=== PATIENT | male | born 1965 | race Caucasian/White ===

== ENCOUNTER 2025-02-18 12:45 | Outpatient (OUT) | payer OTHER, SELFPAY ==
--- OUTSIDE RECORDS SUMMARY | 2025-02-16 04:00 | XMS_ITS ---
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 Role Phone DO Sona Adame Primary Care Provider Brent George Unavailable [phone] Allergies No Known Allergies REASON FOR VISIT EMPHYSEMA Medications Medication SIG (Take, Route, Frequency, Duration) Notes Start Date End Date Status Breztri Aerosphere 160-9-4.8 MCG/ACT 2 puffs Inhalation Twice a day for 30 days Rinse after use 02/16/2025 Active metFORMIN HCl ER 500 MG TAKE 4 TABLETS B Y MOUTH ONCE DAILY Oral for 90 Days Active Losartan Potassium 50 MG TAKE 1 TABLET B Y MOUTH ONCE DAILY Oral for 90 Days Active Rosuvastatin Calcium 20 MG TAKE 1 TABLET BY MOUTH ONCE DAILY Oral for 90 Days Active Omeprazole 40 MG TAKE 1 CAPSULE BY MOUTH ONCE DAILY Oral for 30 Days Active Albuterol Sulfate HFA 108 (9 0 Base) MCG/ACT INHALE 1 TO 2 PUFFS BY MOUTH EVERY 4 TO 6 HOURS NEEDED Inhalation Active hydroCHLOROthiazide 25 MG TAKE 1 TABLET BY MOUTH ONCE DAILY Oral for 90 Days Active Aspirin 81 MG 1 tablet Orally Once a day for 30 day(s) 02/16/2025 Active Social History Tobacco Use: Social History Observation Description Date Details (start date - stop date) Never Smoker NA - NA Tobacco Control (Standard) Question Answer Notes Tobacco use: Nonsmoker Problems Problem Type SNOMED Code ICD Code Onset Dates Problem Status W/U Status Risk Notes Problem Paraseptal emphysema (41506736) Paraseptal emphysema (J43.8) Active confirmed Problem Coronary artery disease (38355892) CAD (coronary artery disease) (I25.10) Active confirmed Problem Diabetes mellitus type 2 (disorder) (23567396) DM2 (diabetes mellitus, type 2) (E11.9) Active confirmed Problem Allergic rhinitis (01511074) Allergic rhinitis (J30.9) Active confirmed Problem Exposure to second hand tobacco smoke (event) (9256408636217553 3) Secondhand smoke exposure (Z77.22) Active confirmed Problem 158580850 intermediate (current) use of inhaled steroids (Z79.51) Active confirmed Problem Uncomplicated moderate persistent asthma (514797452) Moderate persistent asthma, uncomplicated (J45.40) Active confirmed Vital Signs Temperature 96.9 degrees Fahrenheit 02/17/20 25 Blood pressure systolic 135 mm Hg 02/17/20 25 Blood pressure diastolic 81 mm Hg 025 Heart Rate 70 /min 02/16/2025 Respiratory Rate 16 /min 02/16/2025 Height 75.0 in 02/16/2025 Weight 219.8 lbs 02/16/2025 BMI 27.47 kg/m2 02/16/2025 Oximetry 96 % 02/16/2025 Procedures Procedure Date Ordered Date Performed Result Body Sit e PFT (30813, 34419, 00879) 02/16/2025 N/A Encounters Encounter Location Date Provider Diagnosis Pulmonary Medicine [address] [address] 02/16/2025 Brent Pollack Paraseptal emphysema J43.8 ; Moderate persistent asthma, uncomplicated J45.40 ; Allergic rhinitis J30.9 ; CAD (coronary artery disease) I25.10 ; DM2 (diabetes mellitus, type 2) E11.9 ; Secondhand smoke exposure Z77.22 and intermediate (current) use of inhaled steroids Z79.51 Assessments Encounter Date Diagnosis (ICD Code) Assessment Notes Treatment Notes Treatment Clinical Notes Section Notes 02/16/2025 Paraseptal emphysema (ICD-10 - J43.8) Asthma-COPD overlap Lifelong nonsmoker, but has exposure to secondhand smoke in youth, and 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 With his family history of COPD and the Bilateral lower lobe paraseptal emphysematous changes noted on CT chest 12/12/2024, alpha-1 antitrypsin (AAT) deficiency needs R/O. Screening swab performed in the office. Pamphlet discussing AAT causes, testing, and potential treatment was provided to the patient. Appropriate follow-up is dependent on identified genotype. 02/16/2025 Moderate persistent asthma, uncomplicated (ICD-10 - J45.40) Diagnosed ~5 years ago, symptoms worsened ~3 years ago with COVID, now a significant decline in control over the past 4 months. PFT 01/26/2022 noted only very mild obstruction. Emphysematous changes noted on CT chest, but lifelong non-smoker. Currently, on Asmanex 200 and using albuterol 8-9 times a day. Breath sounds are clear today. Question asthma-COPD overlap +/- other contributing factor such as cardiac or neuromuscular - he has known CAD. He is fatigued, but does not profess classic symptoms such as myasthenia gravis. As it has been 3+ years since last PFT was done, recommended repeating it for comparison in order to help identify the main cause for uncontrolled symptoms. He voiced agreement. There is question about LABA intolerance, but I suspect this was more d/t the dry powder inhaler formulation opposed to the actual LABA (e.g. Advair). Patient voiced he would be willing to try a LABA, seeing how bad he is feeling. After PFT is done, he can start Breztri 2 puffs BID - samples provided. Counseled him on adverse effects, including LAMA - he already has dry mouth and blurry vision; counseled on urinary retention. He is to stop Asmanex when he starts Breztri. Avoid albuterol within 2 hours of Breztri to avoid a pharmacodynamic interaction. There is no eosinophils on most recent testing 2 months ago. He is going to see Dr. Reyes for allergy testing on 03/04/2025, so I am going to defer any further lab testing to Dr. Reyes (e.g. IgE). Counseled patient if Dr. Ryees recommends allergy immunotherapy, I would go with it. F/U 4 weeks to review PFT and response to Breztri. 02/16/2025 Allergic rhinitis (ICD-10 - J30.9) Patient has new patient appointment with Dr. Reyes on 03/04/2025. Patient was encouraged to keep that appointment. 02/16/2025 CAD (coronary artery disease) (ICD-10 - I25.10) Diffuse mild-moderate CAD noted on [facility] 01/01/2022. If PFT does not show any significant worsening, and he does not respond to Breztri, then we have to consider the possibility that dyspnea is related to underlying CAD. 02/16/2025 DM2 (diabetes mellitus, type 2) (ICD-10 - E11.9) Steroids prescribed for this patient's underlying pulmonary disease can adversely affect blood glucose levels, inducing hyperglycemia and worsening underlying diabetes. The patient is encouraged to follow up with the primary care provider to create a plan to manage diabetes in this situation. 02/16/2025 Secondhand smoke exposure (ICD-10 - Z77.22) 02/16/2025 intermediate (current) use of inhaled steroids (ICD-10 - Z79.51) Patient was counseled to rinse & gargle with water after inhaled corticosteroid use. 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 With his family history of COPD and the Bilateral lower lobe paraseptal emphysematous changes noted on CT chest 12/12/2024, alpha-1 antitrypsin (AAT) deficiency needs R/O. Screening swab performed in the office. Pamphlet discussing AAT causes, testing, and potential treatment was provided to the patient. Appropriate follow-up is dependent on identified genotype. Moderate persistent asthma, uncomplicate d Diagnosed ~5 years ago, symptoms worsened ~3 years ago with COVID, now a significant decline in control over the past 4 months. PFT 01/26/2022 noted only very mild obstruction. Emphysematous changes noted on CT chest, but lifelong non-smoker. Currently, on Asmanex 200 and using albuterol 8-9 times a day. Breath sounds are clear today. Question asthma-COPD overlap +/- other contributing factor such as cardiac or neuromuscular - he has known CAD. He is fatigued, but does not profess classic symptoms such as myasthenia gravis. As it has been 3+ years since last PFT was done, recommended repeating it for comparison in order to help identify the main cause for uncontrolled symptoms. He voiced agreement. There is question about LABA intolerance, but I suspect this was more d/t the dry powder inhaler formulation opposed to the actual LABA (e.g. Advair). Patient voiced he would be willing to try a LABA, seeing how bad he is feeling. After PFT is done, he can start Breztri 2 puffs BID - samples provided. Counseled him on adverse effects, including LAMA - he already has dry mouth and blurry vision; counseled on urinary retention. He is to stop Asmanex when he starts Breztri. Avoid albuterol within 2 hours of Breztri to avoid a pharmacodynamic interaction. There is no eosinophils on most recent testing 2 months ago. He is going to see Dr. Reyes for allergy testing on 03/04/2025, so I am going to defer any further lab testing to Dr. Reyes (e.g. IgE). Counseled patient if Dr. Reyes recommends allergy immunotherapy, I would go with it. F/U 4 weeks to review PFT and response to Breztri. Allergic rhinitis Patient has new patient appointment with Dr. Reyes on 03/04/2025. Patient was encouraged to keep that appointment. CAD (coronary artery disease) Diffuse mild-moderate CAD noted on [facility] 01/01/2022. If PFT does not show any significant worsening, and he does not respond to Breztri, then we have to consider the possibility that dyspnea is related to underlying CAD. DM2 (diabetes mellitus, type 2) Steroids prescribed for this patient's underlying pulmonary disease can adversely affect blood glucose levels, inducing hyperglycemia and worsening underlying diabetes. The patient is encouraged to follow up with the primary care provider to create a plan to manage diabetes in this situation. intermediate (current) use of i nhaled steroids Patient was counseled to rinse & gargle with water after inhaled corticosteroid use. Pending Test Test Name Order Date [id number]-3-[id number] SCREENING SWAB 02/16 PFT (18937, 20154, 98916) 02/16/2025 Next Appt Details Follow Up: 4 Weeks, Reason: Asthma/COPD Provider Name:Brent Pollack, 03/18/2025 07:30:00 AM, [address] [place], [id number], Procedure Notes * Category Sub-Category Detail Notes [place]: [place] [facility] [place] 70%-FEV1: 110%-FVC: 120%-EXP40-09%: 94%-Bronchodilator response: None-RV: 99%-T%-DLCO: 113% Progress Notes * LAURA Gerson EDOB:1964 (59 yo M)Acc No.[id number]:02/16/2025 New Patient Patient: Gerson WARE Provider: Elan Pollack DO :1965 A ge:59 Y S ex:Male Date:02/16/2025 Address:[address] [place], [place] [id number] Pcp:DO Sona Adame Check In:07:46 AM ESTDenisseck O ut:08:43 AM EST Subjective: * Chief Complaints: * E MPHYSEMA * HPI: G eneral: NEW PATIENT 59yo male presents with history of asthma/COPD overlap. Patient states he was diagnosed with asthma ~2019. Contracted COVID-19 ~2021 and saw [facility] once (Raiaz Castro NP). He was doing okay until about the past year when he noticed slowly worsening respiratory symptoms. Over the past ~4 months, these symptoms have worsened significantly. Main complaint is dyspnea. It is worsening with activity, but can also occur simply at rest. Triggers also include temperature extremes and allergens (e.g. pollen). He also complains of a daily productive cough - it is worst in the AM, can be clear/white and thick without hemoptysis. He has an appointment scheduled 03/04/[address] Reyes for allergy evaluation. He is using albuterol up to 8-9 times a day; symptoms are worst at work. For a maintenance inhaler, he currently uses Asmanex 200. Previously on Flovent 220 which worked well, but was changed d/t formulary issues. There is a record that LABA worsened symptoms. He was on Advair Diskus - he doesnotdo well with dry powder inhalers, so he may actually not have an intolerance to LABA. He is a lifelong nonsmoker. There is family history of COPD and lung cancer. 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 He wore respirator gear while painting, but does not seem to use any PPE at the foundry. He has a dog, no birds. Reviewed data. -CT chest 12/12/2024 noted emphysema and calcified mediastinal/hilar lymph nodes. I personally reviewed the imaging. The emphysema is mild and primarily paraseptal in the bases. -PFT 01/26/2022: Very mild obstruction (FEV1/FVC 70%, FEV1 110%), without a bronchodilator response, and normal lung volumes and DLCO. -LHC 01/01/2022: Diffuse mild CAD -Echo 01/01/2022: EF 55-60%, mild diastolic dysfunction (grade 1), no RVSP mentioned -Labs 12/12/2024: Eosinophils 1.4% / 100 He follows with [facility] for cardiac issues. Last visit note 10/20/2024 was reviewed. MA Intake Comments:. Patient is referred from for Emphysema. Patient complains of Cough, SOB, Chest Tightness & bilateral rib pain for the last several months. Patient reports being seen by [facility] Pulmonary several years ago. Patient is a non-smoker. Patient currently works in a [employer]. Patient is currently using Asmanex with benefit. Patient is currently using his rescue inhaler 8-9 times per day. Patient reports trying a powder inhaler and was unable to tolerate the medication. Patient reports using Flovent in the past with benefit, but insurance would not cover the medication. Patient was on the medication for 4 years and did not have to use his rescue inhaler while on the medication. Patient is under the care of [facility]. * ROS: G eneral/Constitutional: Fever or sweats d enies. C hange of appetite d enies. C hills d enies. W eight Change d enies. H EENT: Blurry Vision a dmits. D ry mouth a dmits. S ore throat d enies. O ral Ulcers d enies. P ost Nasal Drip D enies.?Congestion A dmits. H oarseness D enies. C ardiovascular: Tachycardia d enies. E harpreet D enies. C hest pain d enies. P alpitations d enies. R espiratory: Pleurisy D enies. D yspnea a dmits. C ough d aily productive, clear/white thick sputum. H emoptysis d enies. W heezing d enies. G astrointestinal: Acid Reflux/GERD/Heartburn d enies. D ysphagia d enies. M usculoskeletal: Arthralgias/joint pain D enies. S kin: Easy bruising d enies. R irina d enies. ? N eurologic: Seizures d enies. T remor d enies. H ematology: Abnormal Bleeding d enies. P sychiatric: Anxiety d enies. * Active Problem List I25.10 CAD (coronary artery disease) Modified On:02/16/2025U Status:confirmed J30.9 Allergic rhinitis Modified On:02/16/2025 Status:confirmed E11.9 DM2 (diabetes [facility], type 2) Modified On:02/16/2025U Status:confirmed J43.8 Paraseptal emphysema Modified On:02/16/2025U Status:confirmed Z77.22 Secondhand smoke exp osure Modified On:02/16/2025U Status:confirmed J45.40 Moderate persistent asthma, uncomplicated Modified On:02/16/2025U Status:confirmed Z79.51 intermediate (current) use of inhaled steroids Modified On:02/16/2025 Status:confirmed * Medical History: * Surgical History: C ardiac Catheterization 01/02/2022 * Hospitalization/Major Diagno stic Procedure: D enies Past Hospitalization * Family History: F ather: stomach cancer. M other: Lung cancer, leukemia, diagnosed with Colon cancer. M aternal aunt: emphysema. S ister(s): diagnosed with Diabetes mellitus without mention of complication, type II or unspecified type, not stated as uncontrolled, Unspecified heart disease. 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 D rugs/Alcohol: D rugs H ave you used drugs other than those for medical reasons in the past 12 months? N o D oes the Patient have a History of Drug Abuse in the Past? N o Caffeine I ntake: n one Do you drink alcohol?: No. Do you smoke marijuana?: Denies. * Medications: T akingAlbuterol Sulfate HFA 108 (90 Base) MCG/ACT Aerosol Solution INHALE 1 TO 2 PUFFS BY MOUTH EVERY 4 TO 6 HOURS NEEDED Inhalation Asmanex HFA(Mometasone Furoate) 200 MCG/ACT Aerosol INHALE 2 PUFFS TWICE DAILY;RINSE MOUTH THOROUGHLY WITH WATER AFTER USE Inhalation Aspirin 81 MG Tablet Delayed Release 1 tablet Orally Once a day hydroCHLOROthiazide 25 MG Tablet TAKE 1 TABLET BY MOUTH ONCE DAILY Oral Losartan Potassium 50 MG Tablet TAKE 1 TABLET BY MOUTH ONCE DAILY Oral metFORMIN HCl ER 500 MG Tablet Extended Release 24 Hour TAKE 4 TABLETS BY MOUTH ONCE DAILY Oral Omeprazole 40 MG Capsule Delayed Release TAKE 1 CAPSULE BY MOUTH ONCE DAILY Oral Rosuvastatin Calcium 20 MG Tablet TAKE 1 TABLET BY MOUTH ONCE DAILY Oral Medication List reviewed and reconciled with the patientTaking Albuterol Sulfate HFA 108 (90 Base) MCG/ACT Aerosol Solution INHALE 1 TO 2 PUFFS BY MOUTH EVERY 4 TO 6 HOURS NEEDED Inhalation Taking Asmanex HFA(Mometasone Furoate) 200 MCG/ACT Aerosol INHALE 2 PUFFS TWICE DAILY;RINSE MOUTH THOROUGHLY WITH WATER AFTER USE Inhalation Taking Aspirin 81 MG Tablet Delayed Release 1 tablet Orally Once a day Taking hydroCHLOROthiazide 25 MG Tablet TAKE 1 TABLET BY MOUTH ONCE DAILY Oral Taking Losartan Potassium 50 MG Tablet TAKE 1 TABLET BY MOUTH ONCE DAILY Oral Taking metFORMIN HCl ER 500 MG Tablet Extended Release 24 Hour TAKE 4 TABLETS BY MOUTH ONCE DAILY Oral Taking Omeprazole 40 MG Capsule Delayed Release TAKE 1 CAPSULE BY MOUTH ONCE DAILY Oral Taking Rosuvastatin Calcium 20 MG Tablet TAKE 1 TABLET BY MOUTH ONCE DAILY Oral Medication List reviewed and reconciled with the patient * Allergies: N .K.D.A.no[Allergies Verified] Objective: * Vitals: W t:219.8lbs, Ht:75.0in, BP:sittin/81mm Hg, Temp:Forehead:96.9F, HR:70/min, RR:16/min, BMI:27.47Index, Oxygen sat %:Room Air:96%, Ht-cm: 190.5 cm, Wt-k.7 kg. * Examination: E xam: GENERAL APPEARANCE: A ppears stated age. Skin N ormal. Mouth P ink and moist. Oropharynx M allampati Class II. Trachea M idline. Chest N ormal. Respiratory Normal M ovements, E ffort N ormal. Auscultation B reath sounds are diminished but clear to auscultation without wheezes, crackles, or rhonchi. Cardiac R egular rate and rhythm. Gastrointestinal N ormal. Vascular N o edema. Musculoskeletal N ormal posture. Neurological F ocal, intact. Psychiatric A lert and oriented x3. Mentation/Cognition N ormal. Assessment: * Assessment: 1. M oderate persistent asthma, uncomplicated - J45.40 (Primary) 2 . P araseptal emphysema - J43.8 3 . A llergic rhinitis - J30.9 4 . C AD (coronary artery disease) - I25.10 5 . D M2 (diabetes mellitus, type 2) - E11.9 6 . S econdhand smoke exposure - Z77.22 7 . L taylor term (current) use of inhaled steroids - Z79.51 Plan: * Treatment: 2. 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 With his family history of COPD and the Bilateral lower lobe paraseptal emphysematous changes noted on CT chest 12/12/2024, alpha-1 antitrypsin (AAT) deficiency needs R/O. Screening swab performed in the office. Pamphlet discussing AAT causes, testing, and potential treatment was provided to the patient. Appropriate follow-up is dependent on identified genotype. 3. A llergic rhinitis Notes: Patient has new patient appointment with Dr. Reyes on 03/04/2025. Patient was encouraged to keep that appointment. 4. C AD (coronary artery disease) Notes: Diffuse mild-moderate CAD noted on [facility] 01/01/2022. If PFT does not show any significant worsening, and he does not respond to Breztri, then we have to consider the possibility that dyspnea is related to underlying CAD. 5. D M2 (diabetes mellitus, type 2) Notes: Steroids prescribed for this patient's underlying pulmonary disease can adversely affect blood glucose levels, inducing hyperglycemia and worsening underlying diabetes. The patient is encouraged to follow up with the primary care provider to create a plan to manage diabetes in this situation. ? 6. L taylor term (current) use of inhaled steroids Notes: Patient was counseled to rinse & gargle with water after inhaled corticosteroid use. * Procedures: P FT: Data: [place] [facility] [place]FEV[place]FVC: 70% -FEV1: 110% -FVC: 120% -FKN30-24%: 94% -Bronchodilator response: None -RV: 99% -T% -DLCO: 113%. * Procedure Codes: * Preventive Medicine: COVID Vaccination: H as patient had COVID Vaccination? COVID Vaccination N o Patient Refused Immunization Status: P neumovacc P rotven84-98/10/2024. I nfluenza 1 . Z ostivax 0 05/03/2024. B oostrix 0 02/29/2024. Screenings/Counseling: F ALL RISK SCREENING Fall Risk Assessment: N o falls in the past year Are you afraid of falling? N o T OBACCO ACTION PLAN Exclusion: M edical Reason Non Smoker Type of Medical Reason: N ot indicated B NJ ACTION PLAN Above Normal BMI Follow-up D ietary management education, guidance, and counseling R SV-11/10/2023. * Follow Up: 4 Weeks (Reason: Asthma/COPD) * * Sign off status: Completed Visit Status: C HK (Check Out) true * Provider: Elan Pollack DO Date: 0 02/16/2025 Generated for Dean anders/Ratna/eTransmitting on: 0 02/18/2025 12:53 PM EDT History and Physical Notes * HPI (History of Present Illness) Category Sub-Category Detail Notes Category Not es General Patient is refe rred from for Emphysema. Patient complains of Cough, SOB, Chest Tightness & bilateral rib pain for the last several months. Patient reports being seen by [facility] Pulmonary several years ago. Patient is a non-smoker. Patient currently works in a [employer]. Patient is currently using Asmanex with benefit. Patient is currently using his rescue inhaler 8-9 times per day. Patient reports trying a powder inhaler and was unable to tolerate the medication. Patient reports using Flovent in the past with benefit, but insurance would not cover the medication. Patient was on the medication for 4 years and did not have to use his rescue inhaler while on the medication. Patient is under the care of [facility]. Examination Category Sub-Category Detail Notes Category Not es Exam GENERAL APPEARANCE: Appears stated age Skin Normal Mouth [place] and moist Trachea Midline Chest Normal Respiratory Normal Movements, Ef fort Normal Auscultation Breath sounds are di minished but clear to auscultation without wheezes, crackles, or rhonchi Cardiac Regular rate and rhy thm Gastrointestinal Normal Vascular No edema Musculoskeletal Normal posture Neurological Focal, intact Psychiatric Alert and oriented x 3 Mentation/Cognition Normal Oropharynx Mallampati Class II
--- OUTSIDE RECORDS SUMMARY | 2025-02-18 12:53 | XMS_ITS | Clinical Summary ---
Author Organization [facility] Address [address] [place] [address] Phone Care Team Providers Care Software Development Test Engineer Name Role Phone David Griffith MD Primary Care Prov ider Allergies No known active allergies Medications fluticasone (Flovent HFA) 220 mcg/actuation inhaler Inhale 2 puffs 2 times a day. 2 Active metFORMIN, OSM, (Fortamet) 500 mg 24 hr tablet Take 1 tablet (500 mg) by mouth once daily in the evening. Take with meals. Do not crush, chew, or split. Active omeprazole (PriLOSEC) [address] capsule Take 1 capsule (40 mg) by mouth once daily in the morning. Take before meals. Do not crush or chew. Active aspirin 81 mg EC tablet Take 1 tablet (81 mg) by mouth once daily. Active hydroCHLOROthiazide (HYDRODiuril) 25 mg tabletIndications:P rimary hypertension Take 1 tablet (25 mg) by mouth once daily. 90 tablet 3 5 10/20/19 26 Active losartan (Cozaar) 50 mg tabletIndications:P rimary hypertension Take 1 tablet (50 mg) by mouth once daily. 90 tablet 3 5 10/20/19 26 Active rosuvastatin (Crestor) 20 mg tabletIndications:M ixed hyperlipidemia Take 1 tablet (20 mg) by mouth once daily. 90 tablet 3 01/10/20/19 Active Active Problems Problem Noted Date Diagnosed Date BMI 27.0-27.9,adult 10/20/2024 Hx of chest pain 10/20/2024 Never smoked any substance 10/08/2023 Atypical chest pain 08/15/2023 Hiatal hernia 08/15/2023 History of COVID-19 08/15/2023 Hyperlipidemia 08/15/2023 Non-insulin dependent type 2 diabetes mellitus ( Multi) 08/15/2023 Primary hypertension 08/15/2023 SOB (shortness of breath) on exertion 08/15/2023 Immunizations Immunization Administration Dates Next Due Influenza, seasonal, injectable 07/15/2024 Pneumococcal polysaccharide vaccine, 23-valent, age 2 years and older (PNEUMOVAX 23) 11/07/2023 RSV-MAb 11/07/2023 Varicella vaccine, subcutaneous (VARIVAX) 2023 Family History Medical History Relation Name Comments Colon cancer Mother Leukemia Mother Lung cancer Mother Diabetes Sister Relation Name Status Comments Mother Sister Social History Tobacco Use Types Packs/Day Years Used Date Smoking Tobacco: Never Smokeless Tobacco: Never Tobacco Cessation:Counseling Given: Yes Alcohol Use Standard Drinks/Week Comments Never 0 (1 standard drink = 0.6 oz pur e alcohol) Sex and Gender Information Value Date Recorded Sex Assigned at Not on file Legal Sex Male 4:32 AM EST Gender Identity Not on file Sexual Orientation Not on file Last Filed Vital Signs Vital Sign Reading Time Taken Comments Blood Pressure 128/82 10/20/2024 1:28 PM EST Pulse 80 10/20/2024 1:28 PM EST Temperature 36.9 C (98.4 F) 11/04/2019 4:25 PM EST Respiratory Rate - - Oxygen Saturation 97% 11/04/2019 4:25 PM EST Inhaled Oxygen Concentration - - Weight 101 kg (222 lb) 10/20/2024 1:28 PM EST Height 190.5 cm (6' 3 ) 10/20/2024 1:28 PM EST Body Mass Index 27.75 10/20/2024 1:28 PM EST Plan of Treatment Upcoming Encounters Date Type Department Care Team (Late st Contact Info) Description 10/22/2025 1:00 PM EST Office Visit [place] [id number] [address] Ivory Meek MD [address] [facility] [address] [place] [address] Health Maintenance Due Date Last Done Comments CT Colonography 1965 Diabetes: Urine Protein Screening 1965 FIT-DNA (Cologuard) 1965 FIT 1965 HIV Screening 1965 Lipid Panel 1965 Yearly Adult Physical 1965 Diabetes: Retinopathy Screening 1973 Hepatitis C Screening 1981 Diabetes: Hemoglobin A1C 03/30/2022 12/29/2021 MMR Vaccines (1 of 1 - Standard series) 12/05/2023 COVID-19 Vaccine ( - 2023-2 5 season) 2024 Sigmoidoscopy 05/29/2028 05/29/2023 Colonoscopy 05/29/2033 05/29/2023 Colorectal Cancer Screening 05/29/2033 DTaP/Tdap/Td Vaccines (4 - T d or Tdap) 02/28/2034 02/29/2024, 01/15/2017, 03/15/2015 Irritable Bowel Syndrome Discontinued 05/29/2023 Pneumococcal Vaccine Completed 11/10/2023, 11/07/2023 RSV High Risk: (Elderly (60+ ) or Population) Completed 11/10/2023 Zoster Vaccines Completed 05/03/2024, 02/29/2024, 11/07/2023 Influenza Vaccine Completed 07/19/2024, 07/15/2024 HIB Vaccines Aged Out No longer eligi ble based on patient's age to complete this topic HPV Vaccines Aged Out No longer eligi ble based on patient's age to complete this topic Hepatitis A Vaccines Aged Out No long er eligible based on patient's age to complete this topic Hepatitis B Vaccines Aged Out No long er eligible based on patient's age to complete this topic IPV Vaccines Aged Out No longer eligi ble based on patient's age to complete this topic Meningococcal Vaccine Aged Out No jacqueline severiano eligible based on patient's age to complete this topic Rotavirus Vaccines Aged Out No longer eligible based on patient's age to complete this topic Procedures Procedure Name Priority Date/Time Associated Diagnosis Comments HEMOGLOBIN A1C Routine 12/29/2021 10:13 AM EDT from Last 3 Months or Most Recently Relevant to Health Maintenance Results * (ABNORMAL) Hemoglobin A1C (12/29/2021 10:13 AM EDT) Hemoglobin A1C 7.8(A) % [facility] Comment: Diagnosis of Diabetes-Adults Non-Diabetic: < or = 5.6% Increased risk for developing diabetes: 5.7-6.4% Diagnostic of diabetes: > or = 6.5% . Monitoring of Diabetes Age (y) Therapeutic Goal (%) Adults: >18 <7.0 Pediatrics: 13-18 <7.5 7-12 <8.0 0- 6 7.5-8.5 [place] [employer]. Diabetes Care 33(S1), Oct 2009. Estimated Average Glucose 177 MG/DL [facility] 12/29/2021 10:1 3 AM EDT 12/29/2021 10:15 AM EDT us Michael Alvarez DO LAB BLOOD ORDERABLES Final Resul t [facility] [address] [id number] from Last 3 Months or Most Recently Relevant to Health Maintenance Insurance [facility] Care Teams Software Development Test Engineer Relationship Specialty Start Date End Date David Griffith MD [address] [place] [address] PCP - General 12/11/21
--- OUTSIDE RECORDS SUMMARY | 2025-02-18 12:53 | XMS_ITS | Encounter Summary ---
Author Organization [facility] Address [address] [place] [address] Care Team Providers Care Commercial Lawn Specialist Name Role Phone David Griffith MD Primary Care Provider [phone] Lanie White MD Unavailable [phone] Sona Adame DO Primary Care Provider + Source Comments In the event this information is protected by the Federal Confidentiality of Alcohol and Drug AbusePatient Records regulations: The Federal rules restrict any use of the information to criminally investigate or prosecute any alcohol or drug abuse patient.[facility] Reason for Visit * Reason Comments Refill Request Encounter Details Date Type Department Care Team (Late st Contact Info) Description 03/21/2024 Refill [address]astroenterology [address] [place] [address] [place] [address] [place] [address] Refill Request Social History Tobacco Use Types Packs/Day Years Used Date Smoking Tobacco: Never Smokeless Tobacco: Never Area Deprivation Index Answer Date Cristo rded National Score (1-100), lower number is lower ri 87 12/07/2022 State Score (1-10), lower number is lower risk N ot on file 12/07/2022 Data from: https://www.neighborhoodatlas.medicine.[facility].edu/. Last address used for calculation [address] 12/07/2022 Sex and Gender Information Value Date Recorded Sex Assigned at Not on file Legal Sex Male 12:27 PM EDT Gender Identity Not on file Sexual Orientation Not on file documented as of this encounter Miscellaneous Notes * Telephone Encounter - Deisy Peck MA - 03/21/2024 7:37 AM EDT Pharmacy calls in requesting the following refill(s): Requested Prescriptions Pending Prescriptions Disp Refills omeprazole (PRILOSEC) 40 mg capsule [Pharmacy Med Name: Omeprazole 40 MG Oral Capsule Delayed Release] 30 capsule 0 Sig: Take 1 capsule by mouth once daily Last OV:12-07-22 Next OV:na Last Procedure:egd/ colon 05-29-23 Next Procedure:03-25-24 Deisy Peck MA documented in this encounter Plan of Treatment Not on file documented as of this encounter Visit Diagnoses Not on filedocumented in this encounter Care Teams Commercial Lawn Specialist Relationship Specialty Start Date End Date David Griffith MD PCP - General Family Medicine 01/15/17 03/27/24 Sona Adame DO [address] [place], [place] [address] [address] PCP - General Family Medicine 03/28/24 Lanie White MD [address] [place] [address] Referring Family Medicine 08/28/22 documented as of this encounter
--- OUTSIDE RECORDS SUMMARY | 2025-02-18 12:53 | XMS_ITS | Encounter Summary ---
Author Organization [facility] Address [address] [place] [address] Care Team Providers Care Truck Cleaner Name Role Phone Lanie White MD Unavailable [phone] Sona Adame MD Primary Care Provider [phone] Encounter Details Date Type Department Care Team (Late Contact Info) Description 03/25/2024 Clinisync Result Encounter [facility] External Department Unsolicited Provider, Generic External Data Social History Tobacco Use Types Packs/Day Years Used Date Smoking Tobacco: Never Smokeless Tobacco: Never Alcohol Use Standard Drinks/Week Comments Never 0 (1 standard drink = 0.6 oz pur e alcohol) Sex and Gender Information Value Date Recorded Sex Assigned at Not on file Legal Sex Male 7:09 PM EDT Gender Identity Not on file Sexual Orientation Not on file documented as of this encounter Plan of Treatment Upcoming Encounters Date Type Department Care Team (Late Contact Info) Description 03/04/2025 2:20 PM EDT Office Visit [facility] [address] [address] Rafael Reyes MD [address] [address] documented as of this encounter Procedures Procedure Name Priority Date/Time Associated Diagnosis Comments [facility] SUR[facility] Routine 03/25/2024 12:46 PM EDT UPPER GI ENDOSCOPY 03/25/2024 12 :27 PM EDT documented in this encounter Results * [facility] SURG[facility] (03/25/2024 12:46 PM EDT) [facility] CASE REPORT [facility] Comment: Surgical Pathology Report Case: [id number] Authorizing Provider: Álvaro Mcfadden MD Collected: 03/25/2024 12:46 PM Ordering Location: Procedures Received: 03/25/2024 01:49 PM Pathologist: Laura Benitez MD Specimens: A) - Stomach, Antrum, Biopsy, greater curve B) - Stomach, Antrum, Biopsy, lesser curve C) - Stomach, Polyp, Biopsy, pre-pyloric D) - Stomach, Biopsy, incisura E) - Stomach, Biopsy, body greater curve F) - Stomach, Biopsy, body lesser curve G) - Stomach, Fundus, Biopsy, greater curve H) - Stomach, Fundus, Biopsy, lesser curve I) - Esophagus, Biopsy, @ 44; ? short avila's [facility] FINAL DIAGNOSIS [facility] Comment: A. Stomach, greater curvature of antrum, biopsy: - Mixed gastric antral/oxyntic-type mucosa with mild reactive epithelial changes. - No intestinal metaplasia or morphologic evidence of Helicobacter pylori organisms. B. Stomach, lesser curvature of antrum, biopsy: - Mild chronic inactive gastritis with reactive epithelial changes. - No intestinal metaplasia or morphologic evidence of Helicobacter pylori organisms. C. Stomach, prepyloric, biopsy: - Erosive reactive gastropathy. - No intestinal metaplasia or morphologic evidence of Helicobacter pylori organisms. D. Stomach, incisura, biopsy: - Mild chronic inactive gastritis. - No intestinal metaplasia or morphologic evidence of Helicobacter pylori organisms. E. Stomach, greater curvature of body, biopsy: - Gastric oxyntic-type mucosa with histologic features consistent with proton pump inhibitor use. - No intestinal metaplasia or morphologic evidence of Helicobacter pylori organisms. F. Stomach, lesser curvature of body, biopsy: - Gastric oxyntic-type mucosa with histologic features consistent with proton pump inhibitor use. - No intestinal metaplasia or morphologic evidence of Helicobacter pylori organisms. G. Stomach, greater curvature of fundus, biopsy: - Mild chronic inactive gastritis and histologic features consistent with proton pump inhibitor use. - No intestinal metaplasia or morphologic evidence of Helicobacter pylori organisms. H. Stomach, lesser curvature of fundus, biopsy: - Mild chronic inactive gastritis and histologic features consistent with proton pump inhibitor use. - No intestinal metaplasia or morphologic evidence of Helicobacter pylori organisms. I. Esophagus, 44 cm, biopsy: - Hyperplastic squamous esophageal mucosa and inflamed gastric cardiofundic-type mucosa with reactive epithelial changes; negative for intestinal metaplasia. GROSS DESCRIPTION [facility] Comment: A. Stomach, Antrum, Biopsy Received in formalin are two pieces of resendez, soft tissue aggregating to 0.3 x 0.2 x 0.1 cm. Totally submitted in one cassette. B. Stomach, Antrum, Biopsy Received in formalin are two pieces of resendez, soft tissue aggregating to 0.3 x 0.2 x 0.1 cm. Totally submitted in one cassette. C. Stomach, Polyp, Biopsy Received in formalin is one piece of resendez, soft tissue measuring 0.2 x 0.1 x 0.1 cm. Totally submitted in one cassette. D. Stomach, Biopsy Received in formalin are two pieces of resendez, soft tissue aggregating to 0.2 x 0.2 x 0.1 cm. Totally submitted in one cassette. E. Stomach, Biopsy Received in formalin are two pieces of resendez, soft tissue aggregating to 0.3 x 0.2 x 0.1 cm. Totally submitted in one cassette. F. Stomach, Biopsy Received in formalin is one piece of resendez, soft tissue measuring 0.1 x 0.1 x 0.1 cm. Totally submitted in one cassette. G. Stomach, Fundus, Biopsy Received in formalin is one piece of resendez, soft tissue measuring 0.1 x 0.1 x 0.1 cm. Totally submitted in one cassette. H. Stomach, Fundus, Biopsy Received in formalin is one piece of resendez, soft tissue measuring 0.2 x 0.1 x 0.1 cm. Totally submitted in one cassette. I. Esophagus, Biopsy Received in formalin are two pieces of resendez, soft tissue aggregating to 0.2 x 0.1 x 0.1 cm. Totally submitted in one cassette. JTS March 25, 2024 5:16 PM Gross examination performed at [facility], [address] [place] [address] [facility] FINAL PERFORMING LAB [facility] Comment: Diagnostic interpretation performed at [facility] [address] [facility] [address] CLIA# [id number] Roll Builder: Jp Faria M.D. 03/25/2024 12:4 6 PM EDT 03/25/2024 3:38 PM EDT Narrative GAVIOTA - 03/27/2024 10:35 AM EDT Specimen Type: TISSUE SPECIMEN Ordering Facility: [facility] Address: [address] [place] [address] Original Ordering Provider: ÁLVARO MCFADDEN us Generic External Data Provider [facility] F inal Result Performing Organization Address City/State/[facility] Co de Phone Number [facility] [address] [facility] [place] [address] * UPPER GI ENDOSCOPY (03/25/2024 12:27 PM EDT) Anatomical Region Laterality Modality Other 03/25/2024 12:2 7 PM EDT Narrative 03/25/2024 1:00 PM EDT [facility] Gastrointestinal Endoscopy Patient Name: Gerson Desai Procedure Date: 03/25/2024 12:27 PM Date of : 1965 Admit Type: Outpatient Age: 59 Room: AV PROCEDURE A Gender: Male Note Status: Finalized Attending MD: Álvaro Mcfadden MD, [id number] Procedure: Upper GI endoscopy Indications: Intestinal metaplasia, Follow-up of intestinal metaplasia Providers: Álvaro Mcfadden MD Patient Profile: This is a 59 year old male. Refer to note in patient chart for documentation of history and physical. Referring Physician: Álvaro Mcfadden MD (Referring MD) Medicines: Monitored Anesthesia Care Complications: No immediate complications. Requesting Provider: Procedure: Pre-Anesthesia Assessment: - Prior to the procedure, a History and Physical was performed, and patient medications and allergies were reviewed. The patient's tolerance of previous anesthesia was also reviewed. The risks and benefits of the procedure and the sedation options and risks were discussed with the patient. All questions were answered, and informed consent was obtained. Prior Anticoagulants: The patient has taken no anticoagulant or antiplatelet agents. ASA Grade Assessment: II - A patient with mild systemic disease. After reviewing the risks and benefits, the patient was deemed in satisfactory condition to undergo the procedure. After obtaining informed consent, the endoscope was passed under direct vision. Throughout the procedure, the patient's blood pressure, pulse, and oxygen saturations were monitored continuously. The [id number] was introduced through the mouth, and advanced to the second part of duodenum. The upper GI endoscopy was accomplished without difficulty. The patient tolerated the procedure well. Moderate Sedation: MAC anesthesia was administered by the anesthesia team. Total Procedure Duration: 0 hours 10 minutes 0 seconds Findings: The Z-line was irregular and was found 45 cm from the incisors. One tongue of salmon-colored mucosa was present from 44 to 45 cm. Biopsies were taken with a cold forceps for histology at 44 cm with NBI undertaken with photograph. A single 2 mm inflammatory appearing sessile polyp was found in the prepyloric region of the stomach. The polyp was removed with a cold biopsy forceps. Resection and retrieval were complete. Biopsies were taken with a cold forceps for histology gastric mapping greater and lesser curvature of the antrum, body, fundus and incisura. The cardia and gastric fundus were normal on retroflexion. The examined duodenum was normal. The exam was otherwise without abnormality. Impression: - Z-line irregular, 45 cm from the incisors. - [place]-colored mucosa suggestive of short-segment Avila's esophagus. Biopsied. - Gastric mapping of stomach with biopsies as above under Findings. - A single gastric polyp. Resected and retrieved. Biopsied. - Normal examined duodenum. - The examination was otherwise normal. Recommendation: - Discharge patient to home (ambulatory). - Resume previous diet today. - Continue present medications. - Await pathology results. - Continue omeprazole. Procedure Code(s): --- Professional --- 42195, Esophagogastroduodenoscopy, flexible, transoral; with biopsy, single or multiple Diagnosis Code(s): --- Professional --- K22.89, Other specified disease of esophagus K31.7, Polyp of stomach and duodenum K31.A0, Gastric intestinal metaplasia, unspecified CPT copyright 2020 [employer]. All rights reserved. The codes documented in this report are preliminary and upon computing tutor review may be revised to meet current compliance requirements. Attending Participation: I was present for the read portions of this procedure and immediately available for all non-read portions of the procedure. Scope In: 12:44:23 PM Scope Out: 12:54:23 PM MD Álvaro Abel MD 03/25/2024 1:00:19 PM This report has been signed electronically by Álvaro Mcfadden MD Number of Addenda: 0 Note Initiated On: 03/25/2024 12:27 PM Estimated Blood Loss: Estimated blood loss was minimal. Procedure Note Radiology, Radiologist, - 03/25/2024 [facility] Gastrointestinal Endoscopy Patient Name: Gerson Desai Procedure Date: 03/25/2024 12:27 PM Date of : 1965 Admit Type: Outpatient Age: 59 Room: PROCEDURE A Gender: Male Note Status: Finalized Attending MD: Álvaro Mcfadden MD, [id number] Procedure: Upper GI endoscopy Indications: Intestinal metaplasia, Follow-up of intestinal metaplasia Providers: Álvaro Mcfadden MD Patient Profile: This is a 59 year old male. Refer to note in patient chart for documentation of history and physical. Referring Physician: Álvaro Mcfadden MD (Referring MD) Medicines: Monitored Anesthesia Care Complications: No immediate complications. Requesting Provider: Procedure: Pre-Anesthesia Assessment: - Prior to the procedure, a History and Physical was performed, and patient medications and allergies were reviewed. The patient's tolerance of previous anesthesia was also reviewed. The risks and benefits of the procedure and the sedation options and risks were discussed with the patient. All questions were answered, and informed consent was obtained. Prior Anticoagulants: The patient has taken no anticoagulant or antiplatelet agents. ASA Grade Assessment: II - A patient with mild systemic disease. After reviewing the risks and benefits, the patient was deemed in satisfactory condition to undergo the procedure. After obtaining informed consent, the endoscope was passed under direct vision. Throughout the procedure, the patient's blood pressure, pulse, and oxygen saturations were monitored continuously. The [id number] was introduced through the mouth, and advanced to the second part of duodenum. The upper GI endoscopy was accomplished without difficulty. The patient tolerated the procedure well. Moderate Sedation: MAC anesthesia was administered by the anesthesia team. Total Procedure Duration: 0 hours 10 minutes 0 seconds Findings: The Z-line was irregular and was found 45 cm from the incisors. One tongue of salmon-colored mucosa was present from 44 to 45 cm. Biopsies were taken with a cold forceps for histology at 44 cm with NBI undertaken with photograph. A single 2 mm inflammatory appearing sessile polyp was found in the prepyloric region of the stomach. The polyp was removed with a cold biopsy forceps. Resection and retrieval were complete. Biopsies were taken with a cold forceps for histology gastric mapping greater and lesser curvature of the antrum, body, fundus and incisura. The cardia and gastric fundus were normal on retroflexion. The examined duodenum was normal. The exam was otherwise without abnormality. Impression: - Z-line irregular, 45 cm from the incisors. - [place]-colored mucosa suggestive of short-segment Avila's esophagus. Biopsied. - Gastric mapping of stomach with biopsies as above under Findings. - A single gastric polyp. Resected and retrieved. Biopsied. - Normal examined duodenum. - The examination was otherwise normal. Recommendation: - Discharge patient to home (ambulatory). - Resume previous diet today. - Continue present medications. - Await pathology results. - Continue omeprazole. Procedure Code(s): --- Professional --- 49596, Esophagogastroduodenoscopy, flexible, transoral; with biopsy, single or multiple Diagnosis Code(s): --- Professional --- K22.89, Other specified disease of esophagus K31.7, Polyp of stomach and duodenum K31.A0, Gastric intestinal metaplasia,unspecified CPT copyright 2020 [employer]. All rights reserved. The codes documented in this report are preliminary and upon computing tutor review may be revised to meet current compliance requirements. Attending Participation: I was present for the read portions of this procedure and immediately available for all non-read portions of the procedure. Scope In: 12:44:23 PM Scope Out: 12:54:23 PM MD Álvaro Abel MD 03/25/2024 1:00:19 PM This report has been signed electronically by Álvaro Mcfadden MD Number of Addenda: 0 Note Initiated On: 03/25/2024 12:27 PM Estimated Blood Loss: Estimated blood loss was minimal. us Generic External Data Provider [facility] Final Result documented in this encounter Visit Diagnoses Not on filedocumented in this encounter Care Teams Truck Cleaner Relationship Specialty Start Date End Date Lanie White MD [address] [place] [address] PCP - [place] [employer] 05/01/22 Sona Adame MD [address] [place] [address] PCP - General Family Medicine 11/21/23 documented as of this encounter
--- OUTSIDE RECORDS SUMMARY | 2025-02-18 12:53 | XMS_ITS | Encounter Summary ---
Author Organization [facility] Address [address] [place] [address] Care Team Providers Care Computer Support Technician Name Role Phone David Griffith MD Primary Care Provider [phone] Lanie White MD Unavailable [phone] Sona Adame DO Primary Care Provider + Source Comments In the event this information is protected by the Federal Confidentiality of Alcohol and Drug AbusePatient Records regulations: The Federal rules restrict any use of the information to criminally investigate or prosecute any alcohol or drug abuse patient.[facility] Encounter Details Date Type Department Care Team ([facility] st Contact Info) Description 01/03/2024 Patient Msg Gastroenterology [address] [place] [address] Provider, [facility] appointment cancellatio Social History Tobacco Use Types Packs/Day Years Used Date Smoking Tobacco: Never Smokeless Tobacco: Never Area Deprivation Index Answer Date Cristo rded National Score (1-100), lower number is lower ri sk 87 12/07/2022 State Score (1-10), lower number is lower risk N ot on file 12/07/2022 Data from: https://www.neighborhoodatlas.medicine.[facility].edu/. Last address used for calculation [address] [facility] 12/07/2022 Sex and Gender Information Value Date Recorded Sex Assigned at Not on file Legal Sex Male 12:27 PM EDT Gender Identity Not on file Sexual Orientation Not on file documented as of this encounter Plan of Treatment Not on file documented as of this encounter Visit Diagnoses Not on filedocumented in this encounter Care Teams Computer Support Technician Relationship Specialty Start Date End Date David Griffith MD PCP - General Family Medicine 01/15/17 03/27/24 Sona Adame DO [address] [facility] [place] [address] PCP - General Family Medicine 03/28/24 Lanie White MD [address] [place] [address] Referring Family Medicine 08/28/22 documented as of this encounter
--- OUTSIDE RECORDS SUMMARY | 2025-02-18 12:53 | XMS_ITS | Clinical Summary ---
Author Organization [facility] Address [address] [place] [address] Care Team Providers Care Check Embosser Name Role Phone Lanie White MD Unavailable [phone] Sona Adame DO Primary Care Provider + Allergies No known active allergies Medications topiramate (TOPAMAX) 50 mg tablet TAKE 1 TABLET BY MOUTH ONCE DAILY FOR 7 DAYS THEN 1 TWICE DAILY 2 Active simvastatin (ZOCOR) 20 mg tablet Take 20 mg by mouth daily at bedtime. 2 Active losartan (COZAAR) 50 mg tablet TAKE 1 TABLET BY MOUTH ONCE DAILY FOR 90 DAYS 1 Active hydroCHLOROthia zide (HYDRODIURIL, ESIDRIX) 25 mg tablet Take 25 mg by mouth every morning. 1 Active aspirin, enteric coated (ASPIRIN, ENTERIC COATED) 81 mg EC tablet 81 mg. 2 Active metFORMIN (GLUCOPHAGE) 1,000 mg tablet TAKE 1 TABLET BY MOUTH TWICE DAILY WITH A MEAL 3 Active FLOVENT HFA 220 mcg/actuation inhaler Inhale 2 Puffs as instructed twice daily. 3 Active montelukast (SINGULAIR) 10 mg tablet Take 10 mg by mouth once daily. 3 Active rosuvastatin (CRESTOR) 20 mg tablet Take 20 mg by mouth once daily. 3 Active omeprazole (PRILOSEC) 40 mg capsule Take 1 capsule by mouth once daily 30 capsule 11 5 Active Active Problems Problem Noted Date Diagnosed Date Uncontrolled hypertension 12/12/2021 Migraine without aura and wi thout status migrainosus, not intractable 12/12/2021 Hypercholesterolemia 12/12/2021 Family History Medical History Relation Comments Glaucoma Mother Relation Status Comments Mother Social History Tobacco Use Types Packs/Day Years Used Date Smoking Tobacco: Never Smokeless Tobacco: Never Tobacco Cessation:Counseling Given: Not Answered Area Deprivation Index Answer Date Cristo rded National Score (1-100), lower number is lower ri sk 87 12/07/2022 State Score (1-10), lower number is lower risk N ot on file 12/07/2022 Data from: https://www.neighborhoodatlas.medicine.[facility].edu/. Last address used for calculation [address] 12/07/2022 Sex and Gender Information Value Date Recorded Sex Assigned at Not on file Legal Sex Male 12:27 PM EDT Gender Identity Not on file Sexual Orientation Not on file Last Filed Vital Signs Vital Sign Reading Time Taken Comments Blood Pressure 119/74 03/25/2024 1:30 PM EDT Pulse 58 03/25/2024 1:30 PM EDT Temperature 36.3 C (97.4 F) 03/25/2024 1:00 PM EDT Respiratory Rate 18 03/25/2024 1:30 PM EDT Oxygen Saturation 100% 03/25/2024 1:30 PM EDT Inhaled Oxygen Concentration - - Weight 96.2 kg (212 lb) 03/25/2024 10:38 AM EDT Height 190.5 cm (6' 3 ) 03/25/2024 10:38 AM EDT Body Mass Index 26.5 03/25/2024 10:38 AM EDT Plan of Treatment Health Maintenance Due Date Last Done Comments Annual PCP Team Chronic Dise ase Visit 1981 Anxiety Screening 1981 BP Controlled (<130/80) 1981 Depression Screening 1981 HIV Screening 1981 Hepatitis C Screening 1981 CT Colonography 2008 Cologuard (FIT-DNA) 2008 Fecal Occult Blood 2008 Prostate Cancer Screening Discussion 2008 Sigmoidoscopy 2008 Shingrix Vaccine (2 of 2) 04/25/2024 02/29/2024 Colonoscopy 05/29/2024 05/29/2023 Colorectal Cancer Screening 05/29/2024 Covid-19 Vaccine (1 - 2023-2 5 season) 2024 Influenza Vaccine (Season Ended) 2025 Diabetes Screening 08/11/2026 08/11/2023, 1 10/11/2022, 08/11/2023, Additional history exists Lipid Screening 08/11/2028 08/11/2023 DTaP,Tdap,Td Vaccine (4 - Td or Tdap) 02/28/2034 02/29/2024, 01/15/2017, 03/15/2015 Pneumococcal Vaccine: 50+ Completed 11/10/2023 RSV Vaccine Completed 11/10/2023 Procedures Procedure Name Priority Date/Time Associated Diagnosis Comments COLONOSCOPY DIAGNOSTIC Routine 05/29/2023 12:13 PM EDT Family hx of colon cancer from Last 3 Months or Most Recently Relevant to Health Maintenance Results * COLONOSCOPY DIAGNOSTIC (05/29/2023 12:13 PM EDT) Anatomical Region Laterality Modality Other 05/29/2023 12:1 3 PM EDT Narrative 05/29/2023 1:27 PM EDT [facility] Gastrointestinal Endoscopy Patient Name: Gerson Desai Procedure Date: 05/29/2023 12:13 PM Date of : 1965 Admit Type: Outpatient Age: 58 Room: PROCEDURE A Gender: Male Note Status: Finalized Attending MD: Kevin Garcia MD Procedure: Colonoscopy Indications: Screening in patient at increased risk: Colorectal cancer in mother before age 60 Providers: Kevin Garcia MD Patient Profile: This is a 58 year old male. Refer to note in patient chart for documentation of history and physical. Last Colonoscopy: 10 years ago. Referring Physician: Kevin Garcia MD (Referring MD) Medicines: Monitored Anesthesia Care [...] patient has taken no anticoagulant or antiplatelet agents except for aspirin. ASA Grade Assessment: II - A patient with mild systemic disease. After reviewing the risks and benefits, the patient was deemed in satisfactory condition to undergo the procedure. After I obtained informed consent, the scope was passed under direct vision. Throughout the procedure, the patient's blood pressure, pulse, and oxygen saturations were monitored continuously. The 9219 Adult scope was introduced through the anus and advanced to the cecum, identified by appendiceal orifice and ileocecal valve. The colonoscopy was performed without difficulty. The patient tolerated the procedure well. The quality of the bowel preparation was excellent. The quality of the bowel preparation was evaluated using the BBPS (Bascom Bowel Preparation Scale) with scores of: Right Colon = 3, Transverse Colon = 3 and Left Colon = 3 (entire mucosa seen well with no residual staining, small fragments of stool or opaque liquid). The total BBPS score equals 9. The ileocecal valve, appendiceal orifice, and rectum were photographed. Scope Withdrawal Time: 0 hours 7 minutes 17 seconds Moderate Sedation: MAC anesthesia was administered by the anesthesia team. Total Procedure Duration: 0 hours 10 minutes 12 seconds Findings: The perianal and digital rectal examinations were normal. Pertinent negatives include normal sphincter tone. A few medium-mouthed diverticula were found in the sigmoid colon. There was no evidence of diverticular bleeding. A 2 mm polyp was found in the rectum. The polyp was sessile. The polyp was removed with a cold biopsy forceps. Resection and retrieval were complete. Internal hemorrhoids were found during retroflexion. The hemorrhoids were Grade II (internal hemorrhoids that prolapse but reduce spontaneously). The exam was otherwise without abnormality. Impression: - Diverticulosis in the sigmoid colon. There was no evidence of diverticular bleeding. - One 2 mm polyp in the rectum, removed with a cold biopsy forceps. Resected and retrieved. - Internal hemorrhoids. - The examination was otherwise normal. Recommendation: - Discharge patient to home (ambulatory). - Resume previous diet today. - Continue present medications. - Await pathology results. - Repeat colonoscopy with adult scope in 5 years for surveillance. - Patient has a contact number available for emergencies. The signs and symptoms of potential delayed complications were discussed with the patient. Return to normal activities tomorrow. Written discharge instructions were provided to the patient. Procedure Code(s): --- Professional --- 62919, Colonoscopy, flexible; with biopsy, single or multiple Diagnosis Code(s): --- Professional --- Z12.11, Encounter for screening for malignant neoplasm of colon Z80.0, Family history of malignant neoplasm of digestive organs K64.1, Second degree hemorrhoids D12.8, Benign neoplasm of rectum K57.30, Diverticulosis of large intestine without perforation or abscess without bleeding CPT copyright 2020 [employer]. All rights reserved. The codes documented in this report are preliminary and upon purchasing manager review may be revised to meet current compliance requirements. Attending Participation: I was present for the read portions of this procedure and immediately available for all non-read portions of the procedure. Scope In: 1:12:22 PM Scope Out: 1:22:34 PM MD Kevin Abel MD 05/29/2023 1:25:17 PM This report has been signed electronically by Kevin Garcia MD Number of Addenda: 0 Note Initiated On: 05/29/2023 12:13 PM Estimated Blood Loss: Estimated blood loss was minimal. Kevin Garcia MD DIGESTIVE DISEASE Final Res ult from Last 3 Months or Most Recently Relevant to Health Maintenance Insurance [employer] PPO Care Teams Check Embosser Relationship Specialty Start Date End Date Sona Adame DO [address] [place] [address] PCP - General Family Medicine 6/28/24 Lanie White MD [address] [place] [address] Referring Family Medicine 08/28/22
--- OUTSIDE RECORDS SUMMARY | 2025-02-18 12:53 | XMS_ITS | Encounter Summary ---
Author Organization [facility] Address [address] [place] [address] Phone Care Team Providers Care Tongue And Groove Machine Feeder Name Role Phone David Griffith MD Primary Care Prov ider Encounter Details Date Type Department Care Team (Late Contact Info) Description 01/02/2022 Orders Only [facility] LE[facility] [address] [place] [address] Conversion, Onbase Social History Tobacco Use Types Packs/Day Years Used Date Smoking Tobacco: Never Assessed Sex and Gender Information Value Date Recorded Sex Assigned at Not on file Legal Sex Male 4:32 AM EST Gender Identity Not on file Sexual Orientation Not on file documented as of this encounter Functional Status * Little interest or pleasure in doing things Answer Date of Assessment Author Not at all 01/05/2022 12:48 PM EDT Conversi on, [employer] Vitals documented as of this encounter Plan of Treatment Upcoming Encounters Date Type Department Care Team (Late st Contact Info) Description 10/22/2025 1:00 PM EST Office Visit [facility] [address] [facility] [address] [place] [address] Ivory Meek MD [address] [facility] [address] [place] [address] Scheduled Orders Name Type Priority Associated Diagnoses Orde r Schedule OUTSIDE LAB SCAN Lab Ordered: 01/02/2022 OUTSIDE LAB SCAN Lab Ordered: 01/02/2022 documented as of this encounter Visit Diagnoses Not on filedocumented in this encounter Care Teams Tongue And Groove Machine Feeder Relationship Specialty Start Date End Date David Griffith MD [address] [place] [phone] PCP - General 12/11/21 documented as of this encounter
--- OUTSIDE RECORDS SUMMARY | 2025-02-18 12:53 | XMS_ITS | Encounter Summary ---
Author Organization [facility] Address [address] [place] [address] Care Team Providers Care Heavy Equipment Plumbing Supervisor Name Role Phone David Griffith MD Primary Care Provider [phone] Lanie White MD Unavailable [phone] Sona Adame DO Primary Care Provider + Source Comments In the event this information is protected by the Federal Confidentiality of Alcohol and Drug AbusePatient Records regulations: The Federal rules restrict any use of the information to criminally investigate or prosecute any alcohol or drug abuse patient.[facility] Reason for Visit * Reason Comments Refill Request Omeprazole 40 mg Encounter Details Date Type Department Care Team (Late st Contact Info) Description 02/17/2024 Refill Gastroenterology [address] [place] [address] [place] [address] [place] [address] Refill Request (Omeprazole 40 mg/) Social History Tobacco Use Types Packs/Day Years Used Date Smoking Tobacco: Never Smokeless Tobacco: Never Area Deprivation Index Answer Date Cristo rded National Score (1-100), lower number is lower [facility] 87 12/07/2022 State Score (1-10), lower number is lower risk N ot on file 12/07/2022 Data from: https://www.neighborhoodatlas.medicine.[facility].edu/. Last address used for calculation [address] 12/07/2022 Sex and Gender Information Value Date Recorded Sex Assigned at Not on file Legal Sex Male 12:27 PM EDT Gender Identity Not on file Sexual Orientation Not on file documented as of this encounter Miscellaneous Notes * Telephone Encounter - Lupe Porter MA - 02/18/2024 6:55 AM EDT Pharmacy calls in requesting the following refill(s): Requested Prescriptions Pending Prescriptions Disp Refills omeprazole (PRILOSEC) 40 mg capsule [Pharmacy Med Name: Omeprazole 40 MG Oral Capsule Delayed Release] 30 capsule 0 Sig: Take 1 capsule by mouth once daily documented in this encounter Plan of Treatment Not on file documented as of this encounter Visit Diagnoses Not on filedocumented in this encounter Care Teams Heavy Equipment Plumbing Supervisor Relationship Specialty Start Date End Date David Griffith MD PCP - General Family Medicine 01/15/17 03/27/24 Sona Adame DO [address] [facility] [address] PCP - General Family Medicine 03/28/24 Lanie White MD [address] [place] [address] Referring Family Medicine 08/28/22 documented as of this encounter
--- OUTSIDE RECORDS SUMMARY | 2025-02-18 12:53 | XMS_ITS | Clinical Summary ---
Author Organization [facility] Address [address] [place] [address] Care Team Providers Care Drill Press Operator Numerical Control Name Role Phone Sona Adame MD Primary Care Provider [phone] Medications No known medications Active Problems No known active problems Social History Tobacco Use Types Packs/Day Years [...] Sign Reading Time Taken Comments Blood Pressure 126/72 12/27/2023 4:32 PM EDT Pulse 68 12/27/2023 4:32 PM EDT Temperature - - Respiratory Rate - - Oxygen Saturation - - Inhaled Oxygen Concentration - - Weight 96.2 kg (212 lb) 12/27/2023 4:32 PM EDT Height 190.5 cm (6' 3 ) 12/27/2023 4:32 PM EDT Body Mass Index 26.5 12/27/2023 4:32 PM EDT Plan of Treatment Upcoming Encounters Date Type Department Care Team (Late st Contact Info) Description 03/04/2025 2:20 PM EDT Office Visit [facility] [address] [facility] [address] [place] [phone] Rafael Reyes MD [address] [facility] [address] [place] [address] Insurance BCBS Care Teams Drill Press Operator Numerical Control Relationship Specialty Start Date End Date Sona Adame MD PCP - General Family Medicine 11/21/23
--- OUTSIDE RECORDS SUMMARY | 2025-02-18 12:53 | XMS_ITS | Patient Health Record ---
Author Organization [facility] Address [address] [place] [address] Care Team Providers Care Molded Goods Inspector Trimmer Name Role Phone DO Sona Adame Primary Care Provider Brent George Unavailable [phone] Allergies No Known Allergies Reason For Referral No Information Medications Medication SIG (Take, Route, Frequency, Duration) Notes Start Date End Date Status Breztri Aerosphere 160-9-4.8 MCG/ACT 2 puffs Inhalation Twice a day for 30 days Rinse after use 02/16/2025 Active Albuterol Sulfate HFA 108 (9 0 Base) MCG/ACT INHALE 1 TO 2 PUFFS BY MOUTH EVERY 4 TO 6 HOURS NEEDED Inhalation Active hydroCHLOROthiazide 25 MG TAKE 1 TABLET BY MOUTH ONCE DAILY Oral for 90 Days Active Aspirin 81 MG 1 tablet Orally Once a day for 30 day(s) 02/16/2025 Active metFORMIN HCl ER 500 MG [...] ONCE DAILY Oral for 30 Days Active Immunizations Vaccine Route Administration Date Status Comme nts Arexvy Unknown 11/10/2023 Administered Flu, Fluzone (68652) 6 mos+, single-dose syringe/vial () Unknown 07/19/2024 Administered Pneumococcal (Prevnar 20) Unknown 11/10/2023 Administer ed Tdap (Boostrix) Unknown 02/29/2024 Administered Varivax Unknown 11/07/2023 Administered ZOSTER (SHINGLES) VACCINE (HZV) Unknown 05/03/2024 Admi nistered Social History Tobacco Use: Social History Observation Description Date Details (start date - stop date) Never Smoker NA - NA Tobacco Control (Standard) Question Answer Notes Tobacco use: Nonsmoker Problems Problem Type SNOMED Code ICD Code Onset Dates Problem Status W/U Status Risk Notes Problem Uncomplicated moderate persistent asthma (985912461) Moderate persistent asthma, uncomplicated (J45.40) Active confirmed Problem 985694175 medical terminologist (current) use of inhaled steroids (Z79.51) Active confirmed Problem Coronary artery disease (03895436) CAD (coronary artery disease) (I25.10) Active confirmed Problem Allergic rhinitis (18372709) Allergic rhinitis (J30.9) Active confirmed Problem Diabetes mellitus type 2 (disorder) (34442889) DM2 (diabetes mellitus, type 2) (E11.9) Active confirmed Problem Paraseptal emphysema (68424303) Paraseptal emphysema (J43.8) Active confirmed Problem Exposure to second hand tobacco smoke (event) (1801788968641783 3) Secondhand smoke exposure (Z77.22) Active confirmed Vital Signs Heart Rate 70 /min 02/16/2025 Temperature 96.9 degrees Fahrenheit 02/16/2025 Respiratory Rate 16 /min 02/16/2025 Oximetry 96 % 02/16/2025 Blood pressure diastolic 81 mm Hg 02/16/2025 Height 75.0 in 02/16/2025 Blood pressure systolic 135 mm Hg 02/16/2025 Weight 219.8 lbs 02/16/2025 BMI 27.47 kg/m2 02/16/2025 Procedures Procedure Date Ordered Date Performed Result Body Sit e PFT (76549, 77275, 91832) 02/16/2025 N/A Encounters Encounter Location Date Provider Diagnosis Pulmonary Medicine [address] [address] 02/16/2025 Brent Pollack Paraseptal emphysema J43.8 ; Moderate persistent asthma, uncomplicated J45.40 ; Allergic rhinitis J30.9 ; CAD (coronary artery disease) I25.10 ; DM2 (diabetes mellitus, type 2) E11.9 ; Secondhand smoke exposure Z77.22 and MCC (current) use of inhaled steroids Z79.51 Assessments [...] - I25.10) Diffuse mild-moderate CAD noted on [facility] 01/01/2022. If PFT does not show [...] Secondhand smoke exposure (ICD-10 - Z77.22) 02/16/2025 MCC (current) use of inhaled steroids (ICD-10 - Z79.51) Patient was counseled to rinse & gargle with water after inhaled corticosteroid use. Plan Of Treatment Pending Test Test Name Order Date [id number] SCREENING SWAB 02/16 PFT (29845, 71566, 81733) 02/16/2025 Next Appt Details Provider Name:Brent Pollack, 03/18/2025 07:30:00 AM, [address] [place], [address], Insurance Providers Payer Name Payer Address Payer Phone Subscriber Number Group Number Insured Name Patient Relationship to Insured Coverage Start Date Coverage End Date [employer] [employer] [address] [place]AV[place] [phone] [id number] Gerson Desai Self - patient is the insured Medical (General) History Medical History History ICD Code Moderate persistent asthma, uncomplicate d J45.40 Paraseptal emphysema J43.8 CAD (coronary artery disease) I25.10 HTN (hypertension) I10 HLD (hyperlipidemia) E78.5 DM2 (diabetes mellitus, type 2) E11.9 Allergic rhinitis J30.9 Diastolic dysfunction I51.89 Microalbuminuria R80.9 Migraines G43.909 Hiatal hernia K44.9 Gastric polyp K31.7 Secondhand smoke exposure Z77.22 Surgical History Surgery Date(Month/Year) Cardiac Catheterization 01/02/2022
--- OUTSIDE RECORDS SUMMARY | 2025-02-18 12:53 | XMS_ITS | Encounter Summary ---
Author Organization [facility] Address [address] [place] [address] Care Team Providers Care Spray Gun Operator Name Role Phone David Griffith MD Primary Care Provider [phone] Lanie White MD Unavailable [phone] Sona Adame DO Primary Care Provider + Source Comments In the event this information is protected by the Federal Confidentiality of Alcohol and Drug AbusePatient Records regulations: The Federal rules restrict any use of the information to criminally investigate or prosecute any alcohol or drug abuse patient.[facility] Encounter Details Date Type Department Care Team (Late st Contact Info) Description 03/24/2024 GI Preprocedure Call [facility] Surgery [address] [place] [address] [place] [address] [place], [place] [phone] Social History Tobacco Use Types Packs/Day Years Used Date Smoking Tobacco: Never Smokeless Tobacco: Never Area Deprivation Index Answer Date Cristo rded National Score (1-100), lower number is lower ri sk 87 12/07/2022 State Score (1-10), lower number is lower risk N ot on file 12/07/2022 Data from: https://www.neighborhoodatlas.medicine.[facility].edu/. Last address used for calculation [address] 12/07/2022 Sex and Gender Information Value Date Recorded Sex Assigned at Not on file Legal Sex Male 12:27 PM EDT Gender Identity Not on file Sexual Orientation Not on file documented as of this encounter Plan of Treatment Not on file documented as of this encounter Visit Diagnoses Not on filedocumented in this encounter Care Teams Spray Gun Operator Relationship Specialty Start Date End Date David Griffith MD PCP - General Family Medicine 01/15/17 03/27/24 Sona Adame DO [address] [place], [place] [address] [address] PCP - General Family Medicine 03/28/24 Lanie White MD [address] [place] [address] Referring Family Medicine 08/28/22 documented as of this encounter
--- OUTSIDE RECORDS SUMMARY | 2025-02-18 12:53 | XMS_ITS | Encounter Summary ---
Author Organization [facility] Address [address] [place] [address] Phone Care Team Providers Care Playground Equipment Erector Name Role Phone David Griffith MD Primary Care Prov ider Encounter Details Date Type Department Care Team (Late st Contact Info) Description 01/01/2022 Orders Only [facility] LE[facility] [address] [place] [address] Conversion, Onbase Social History Tobacco Use Types [...] Description 10/22/2025 1:00 PM EST Office Visit [facility] [address] [facility] [address] [place] [address] Ivory Meek MD [address] [facility] [address] [place], [place] [id number] Scheduled Orders Name Type Priority Associated Diagnoses Orde r Schedule OUTSIDE LAB SCAN Lab Ordered: 01/01/2022 documented as of this encounter Visit Diagnoses Not on filedocumented in this encounter Care Teams Playground Equipment Erector Relationship Specialty Start Date End Date David Griffith MD [address] [place] [phone] PCP - General 12/11/21 documented as of this encounter
--- OUTSIDE RECORDS SUMMARY | 2025-02-18 12:53 | XMS_ITS | Encounter Summary ---
Author Organization [facility] Address [address] [place] [address] Care Team Providers Care Sales Service Technician Name Role Phone David Griffith MD Primary Care Provider [phone] Lanie White MD Unavailable [phone] Sona Adame DO Primary Care Provider + Source Comments In the event this information is protected by the Federal Confidentiality of Alcohol and Drug AbusePatient Records regulations: The Federal rules restrict any use of the information to criminally investigate or prosecute any alcohol or drug abuse patient.[facility] Encounter Details Date Type Department Care Team (Late st Contact Info) Description 02/19/2024 Patient Msg Gastroenterology [address] [place] [address] [place] [address] [place] [address] EGD Prep Instructions Social History Tobacco Use Types Packs/Day Years Used Date Smoking Tobacco: Never Smokeless Tobacco: Never Area Deprivation Index Answer Date Cristo rded National Score (1-100), lower number is lower ri sk 87 12/07/2022 State Score (1-10), lower number is lower risk N ot on file 12/07/2022 Data from: https://www.neighborhoodatlas.medicine.[facility].edu/. Last address used for calculation [address] [...] on filedocumented in this encounter Care Teams Sales Service Technician Relationship Specialty Start Date End Date David Griffith MD PCP - General Family Medicine 01/15/17 03/27/24 Sona Adame DO [address] [place] [address] [place] [address] PCP - General Family Medicine 03/28/24 Lanie White MD [address] [place] [address] Referring Family Medicine 08/28/22 documented as of this encounter
--- OUTSIDE RECORDS SUMMARY | 2025-02-18 12:54 | XMS_ITS | Encounter Summary ---
Author Organization [facility] Address [address] [place] [address] Care Team Providers Care [employer] Cafeteria Name Role Phone Lanie White MD Unavailable [phone] Sona Adame DO Primary Care Provider + Source Comments In the event this information is protected by the Federal Confidentiality of Alcohol and Drug AbusePatient Records regulations: The Federal rules restrict any use of the information to criminally investigate or prosecute any alcohol or drug abuse patient.[facility] Reason for Visit * Reason Comments Refill Request Omeprazole 40 mg Encounter Details Date Type Department Care Team (Late st Contact Info) Description 09/30/2024 Refill [facility]enterology [address] [place] [address] [place] [address] [place] [address] Refill Request (Omeprazole 40 mg/) Social History Tobacco Use Types Packs/Day Years Used Date Smoking Tobacco: Never Smokeless Tobacco: Never Area Deprivation Index Answer Date Cristo rded National Score (1-100), lower number is lower ri sk 87 12/07/2022 State Score (1-10), lower number is lower risk N ot on file 12/07/2022 Data from: https://www.neighborhoodatlas.medicine.[facility].edu/. Last address used for calculation [address] 12/07/2022 Sex and Gender Information Value Date Recorded Sex Assigned at Not on file Legal Sex Male 12:27 PM EDT Gender Identity Not on file Sexual Orientation Not on file documented as of this encounter Miscellaneous Notes * Telephone Encounter - Lupe Porter MA - 09/30/2024 6:32 AM EST Pharmacy calling in requesting refills as follows: Requested Prescriptions Pending Prescriptions Disp Refills omeprazole (PRILOSEC) 40 mg capsule [Pharmacy Med Name: Omeprazole 40 MG Oral Capsule Delayed Release] 30 capsule 0 Sig: Take 1 capsule by mouth once daily ASHLEY - 12/07/2022 documented in this encounter Plan of Treatment Not on file documented as of this encounter Visit Diagnoses Not on filedocumented in this encounter Care Teams [employer] Relationship Specialty Start Date End Date Sona Adame DO [address] [address] PCP - General Family Medicine 03/28/24 Lanie White MD [address] [place] [address] Referring Family Medicine 08/28/22 documented as of this encounter
--- OUTSIDE RECORDS SUMMARY | 2025-02-18 12:54 | XMS_ITS | Encounter Summary ---
Author Organization [facility] Address [address] [place] [address] Care Team Providers Care Semiconductor Lab Technician Name Role Phone Lanie White MD Unavailable [phone] Sona Adame DO Primary Care Provider + Source Comments In the event this information is protected by the Federal Confidentiality of Alcohol and Drug AbusePatient Records regulations: The Federal rules restrict any use of the information to criminally investigate or prosecute any alcohol or drug abuse patient.[facility] Reason for Visit * Reason Comments Refill Request Encounter Details Date Type Department Care Team (Late st Contact Info) Description 04/26/2024 Refill Gastroenterology [address] [place] [address] [place] [address] [place] [address] Refill Request Social History Tobacco Use Types Packs/Day Years Used Date Smoking Tobacco: Never Smokeless Tobacco: Never Area Deprivation Index Answer Date Cristo rded National Score (1-100), lower number is lower ri sk 87 12/07/2022 State Score (1-10), lower number is lower risk N ot on file 12/07/2022 Data from: https://www.neighborhoodatlas.[facility]/. Last address used for calculation [address] 12/07/2022 Sex and Gender Information Value Date Recorded Sex Assigned at Not on file Legal Sex Male 12:27 PM EDT Gender Identity Not on file Sexual Orientation Not on file documented as of this encounter Miscellaneous Notes * Telephone Encounter - Sonam Celis MA - 04/26/2024 7:46 AM EDT Patient has been identified by name and date of : Yes Last office visit in this department: 12/07/2022 Patient phones requesting refills as follows: Requested Prescriptions Pending Prescriptions Disp Refills omeprazole (PRILOSEC) 40 mg capsule [Pharmacy Med Name: Omeprazole 40 MG Oral Capsule Delayed Release] 30 capsule 0 Sig: Take 1 capsule by mouth once daily Please review and advise. Sonam Celis MA documented in this encounter Plan of Treatment Not on file documented as of this encounter Visit Diagnoses Not on filedocumented in this encounter Care Teams Semiconductor Lab Technician Relationship Specialty Start Date End Date Sona Adame DO [address] [place] [address] PCP - General Family Medicine 03/28/24 Lanie White MD [address] [place] [address] Referring Family Medicine 08/28/22 documented as of this encounter
--- OUTSIDE RECORDS SUMMARY | 2025-02-18 12:54 | XMS_ITS | Encounter Summary ---
Author Organization [facility] Address [address] [place] [address] Care Team Providers Care Pulp And Paper Tester Name Role Phone David Griffith MD Primary Care Provider [phone] Lanie White MD Unavailable [phone] Sona Adame DO Primary Care Provider + Source Comments In the event this information is protected by the Federal Confidentiality of Alcohol and Drug AbusePatient Records regulations: The Federal rules restrict any use of the information to criminally investigate or prosecute any alcohol or drug abuse patient.[facility] Encounter Details Date Type Department Care Team (Late st Contact Info) Description 05/28/2023 GI Preprocedure Call [facility] Surgery [address] [place] [address] David Griffith MD [address] [place] [address] Social History Tobacco Use Types Packs/Day Years Used Date Smoking Tobacco: Never Smokeless Tobacco: Never Area Deprivation Index Answer Date Cristo rded National Score (1-100), lower number is lower ri sk 87 12/07/2022 State Score (1-10), lower number is lower risk N ot on file 12/07/2022 Data from: https://www.neighborhoodatlas.medicine.[facility].edu/. Last address used for calculation [...] on filedocumented in this encounter Care Teams Pulp And Paper Tester Relationship Specialty Start Date End Date David Griffith MD PCP - General Family Medicine 01/15/17 03/27/24 Sona Adame DO [address] [place] [address] PCP - General Family Medicine 03/28/24 Lanie White MD [address] [place] [address] Referring Family Medicine 08/28/22 documented as of this encounter
--- OUTSIDE RECORDS SUMMARY | 2025-02-18 12:54 | XMS_ITS | Encounter Summary ---
Author Organization [facility] Address [address] [facility] [place] [address] Care Team Providers Care Baseball Player Name Role Phone Lanie White MD Unavailable [phone] Sona Adame MD Primary Care Provider [phone] Reason for Visit * Reason Comments Med Refill Encounter Details Date Type Department Care Team (Late Contact Info) Description 02/17/2024 Refill [facility] [address] [place] [address] Lanie White MD [address] [place] [address] Social History Tobacco Use Types Packs/Day Years [...] encounter Miscellaneous Notes * Telephone Encounter - Ravindra Taylor MA - 02/18/2024 8:27 AM EDT No longer pt here, sees another family med documented in this encounter Plan of Treatment Upcoming Encounters Date Type Department Care Team (Late Contact Info) Description 03/04/2025 2:20 PM EDT Office Visit [facility] [address] [place] [address] Rafael Reyes MD [address] [facility] [address] [place] [address] documented as of this encounter Visit Diagnoses Not on filedocumented in this encounter Care Teams Baseball Player Relationship Specialty Start Date End Date aLnie White MD [address] [place] [address] PCP - [place] [employer] 05/01/22 Sona Adame MD [address] [place] [address] PCP - General Family Medicine 11/21/23 documented as of this encounter
--- OUTSIDE RECORDS SUMMARY | 2025-02-18 12:54 | XMS_ITS | Encounter Summary ---
Author Organization [facility] Address [address] [place] [address] Care Team Providers Care Filing And Polishing Supervisor Name Role Phone Lanie White MD Unavailable [phone] Sona Adame DO Primary Care Provider + Source Comments In the event this information is protected by the Federal Confidentiality of Alcohol and Drug AbusePatient Records regulations: The Federal rules restrict any use of the information to criminally investigate or prosecute any alcohol or drug abuse patient.[facility] Reason for Visit * Reason Comments Refill Request Omeprazole 40 mg Encounter Details Date Type Department Care Team (Late st Contact Info) Description 06/27/2024 [facility]ill [facility]ology [address] [place] [address] [place] [address] [place] [address] Refill Request (Omeprazole 40 mg//) Social History Tobacco Use Types Packs/Day Years Used Date Smoking Tobacco: Never Smokeless Tobacco: Never Area Deprivation Index Answer Date Cristo rded National Score (1-100), lower number is lower ri sk 87 12/07/2022 State Score (1-10), lower number is lower risk N ot on file 12/07/2022 Data from: https://www.neighborhoodatlas.medicine.[facility].edu/. Last address used for calculation [address] [...] on filedocumented in this encounter Care Teams Filing And Polishing Supervisor Relationship Specialty Start Date End Date Sona Adame DO [address] [address] [place] [address] PCP - General Family Medicine 03/28/24 Lanie White MD [address] [place] [address] Referring Family Medicine 08/28/22 documented as of this encounter
--- OUTSIDE RECORDS SUMMARY | 2025-02-18 12:54 | XMS_ITS | Encounter Summary ---
Author Organization [facility] Address [address] [place] [address] Care Team Providers Care Burn Crew Member Name Role Phone Lanie White MD Unavailable [phone] Sona Adame DO Primary Care Provider + Source Comments In the event this information is protected by the Federal Confidentiality of Alcohol and Drug AbusePatient Records regulations: The Federal rules restrict any use of the information to criminally investigate or prosecute any alcohol or drug abuse patient.[facility] Reason for Visit * Reason Comments Refill Request Omeprazole 40 mg Encounter Details Date Type Department Care Team (Late st Contact Info) Description 05/26/2024 Refill [address]astroenterology [address] [place] [address] [place] [address] [place] [address] Refill Request (Omeprazole 40 mg/) Social History Tobacco Use Types Packs/Day Years Used Date Smoking Tobacco: Never Smokeless Tobacco: Never Area Deprivation Index Answer Date Cristo rded National Score (1-100), lower number is lower ri sk 87 12/07/2022 State Score (1-10), lower number is lower risk N ot on file 12/07/2022 Data from: https://www.neighborhoodatlas.medicine.[facility].edu/. Last address used for calculation [address] 12/07/2022 Sex and Gender Information Value Date Recorded Sex Assigned at Not on file Legal Sex Male 12:27 PM EDT Gender Identity Not on file Sexual Orientation Not on file documented as of this encounter Miscellaneous Notes * Telephone Encounter - Lupe Porter MA - 05/26/2024 7:09 AM EDT Pharmacy calls in requesting the [...] on filedocumented in this encounter Care Teams Burn Crew Member Relationship Specialty Start Date End Date Sona Adame DO [address] [facility] [place] [address] PCP - General Family Medicine 03/28/24 Lanie White MD [address] [place] [address] Referring Family Medicine 08/28/22 documented as of this encounter
--- OUTSIDE RECORDS SUMMARY | 2025-02-18 12:54 | XMS_ITS | Encounter Summary ---
Author Organization [facility] Address [address] [place] [address] Care Team Providers Care Automatic Spinning Lathe Operator Name Role Phone David Griffith MD Primary Care Provider [phone] Lanie White MD Unavailable Sona Adame DO Primary Care Provider + Source Comments In the event this information is protected by the Federal Confidentiality of Alcohol and Drug AbusePatient Records regulations: The Federal rules restrict any use of the information to criminally investigate or prosecute any alcohol or drug abuse patient.[facility] Encounter Details Date Type Department Care Team (Late st Contact Info) Description 06/21/2023 Patient Msg Procedures [address] [place] [address] Provider, [facility] EGD PREP INSTRUCTIONS Social History Tobacco Use Types Packs/Day Years Used Date Smoking Tobacco: Never Smokeless Tobacco: Never Area Deprivation Index Answer Date Cristo rded National Score (1-100), lower number is lower ri sk 87 12/07/2022 State Score (1-10), lower number is lower risk N ot on file 12/07/2022 Data from: https://www.neighborhoodatlas.medicine.[facility].edu/. Last address used for calculation [address] [facility] [facility] 12/07/2022 Sex and Gender Information Value Date Recorded Sex Assigned at Not on file Legal Sex Male 12:27 PM EDT Gender Identity Not on file Sexual Orientation Not on file documented as of this encounter Plan of Treatment Not on file documented as of this encounter Visit Diagnoses Not on filedocumented in this encounter Care Teams Automatic Spinning Lathe Operator Relationship Specialty Start Date End Date David Griffith MD PCP - General Family Medicine 01/15/17 03/27/24 Sona Adame DO [address] [place] [address] [place] [address] PCP - General Family Medicine 03/28/24 Lanie White MD [address] [place] [address] Referring Family Medicine 08/28/22 documented as of this encounter
--- OUTSIDE RECORDS SUMMARY | 2025-02-18 12:54 | XMS_ITS | Encounter Summary ---
Author Organization [facility] Address [address] [facility] [place] [address] Care Team Providers Care Clinical Nursing Coordinator Name Role Phone Lanie White MD Unavailable [phone] Sona Adame MD Primary Care Provider [phone] Reason for Visit * Reason Comments Med Refill Encounter Details Date Type Department Care Team (Late st Contact Info) Description 12/31/2023 Refill [facility] [address] [place] [address] Lanie White MD [address] [place] [address] Social History Tobacco Use Types Packs/Day Years [...] encounter Miscellaneous Notes * Telephone Encounter - Denise Nino - 12/31/2023 1:26 PM EDT Spk w Pt, is no longer our pt, pcp is Wendi, would OM like to change to unallocated? Please advisethank you. * Telephone Encounter - Juli Green NP - 12/31/2023 10:57 AM EDT Overdue for appt - help scheduled. documented in this encounter Plan of Treatment Upcoming Encounters Date Type Department Care Team (Late st Contact Info) Description 03/04/2025 2:20 PM EDT Office Visit [facility] [address] [place] [address] [place] [address] Rafael Reyes MD [address] [place] [address] documented as of this encounter Visit Diagnoses Not on filedocumented in this encounter Care Teams Clinical Nursing Coordinator Relationship Specialty Start Date End Date Lanie White MD [address] [place] [address] PCP - [facility] 05/01/22 Sona Adame MD [address] [place] [address] PCP - General Family Medicine 11/21/23 documented as of this encounter
--- OUTSIDE RECORDS SUMMARY | 2025-02-18 12:54 | XMS_ITS | Encounter Summary ---
Author Organization [facility] Address [address] [place] [address] Care Team Providers Care Opal Miner Name Role Phone Lanie White MD Unavailable Lanie White MD Primary Care Provider [phone] Sona Adame MD Primary Care Provider [phone] Encounter Details Date Type Department Care Team (Late st Contact Info) Description 05/29/2023 Clinisync Result Encounter [facility] External Department Unsolicited [...] Office Visit [facility] [address] [id number] Rafael Reyes MD [address] [address] documented as of this encounter Procedures Procedure Name Priority Date/Time Associated Diagnosis Comments UPPER GI ENDOSCOPY 05/29/2023 12 :58 PM EDT documented in this encounter Results * UPPER GI ENDOSCOPY (05/29/2023 12:58 PM EDT) Anatomical Region Laterality Modality Other 05/29/2023 12:5 8 PM EDT Narrative 05/29/2023 1:11 PM EDT [facility] Gastrointestinal Endoscopy Patient Name: Gerson Desai Procedure Date: 05/29/2023 12:58 PM Date of : 1965 Admit Type: Outpatient Age: 58 Room: PROCEDURE A Gender: Male Note Status: Finalized Attending MD: Kevin Garcia MD Procedure: Upper GI endoscopy Indications: Esophageal reflux, Follow-up of esophageal reflux Providers: Kevin Garcia MD Patient Profile: This is a 58 year old male. Refer to note in patient chart for documentation of history and physical. Referring Physician: Kevin Garcia MD (Referring MD) [...] and oxygen saturations were monitored continuously. The Endoscope was introduced through the mouth, and advanced to the second part of duodenum. The upper GI endoscopy was accomplished without difficulty. The patient tolerated the procedure well. Moderate Sedation: MAC anesthesia was administered by the anesthesia team. Total Procedure Duration: 0 hours 4 minutes 46 seconds Findings: The Z-line was irregular and was found 45 cm from the incisors. Patchy, scant white plaques were found in the middle third of the esophagus which was brushed. Patchy mildly erythematous mucosa was found in the gastric antrum. Biopsies were taken with a cold forceps for Helicobacter pylori testing. The cardia and gastric fundus were normal on retroflexion. The examined duodenum was normal. The exam was otherwise without abnormality. Impression: - Z-line irregular, 45 cm from the incisors. - Esophageal plaques were found, suspicious for candidiasis. Brushed. - Erythematous mucosa in the antrum. Biopsied. - Normal examined duodenum. - The examination was otherwise normal. Recommendation: - Discharge patient to home (ambulatory). - Resume previous diet today. - Continue present medications. - Await pathology results. - Overall patient has been doing very well with implementation of omeprazole 40 mg daily several months ago which is recommended to continue. Procedure Code(s): --- Professional --- 17826, Esophagogastroduodenoscopy, flexible, transoral; with biopsy, single or multiple Diagnosis Code(s): --- Professional --- K22.89, Other specified disease of esophagus K22.9, Disease of esophagus, unspecified K31.89, Other diseases of stomach and duodenum K21.9, Gastro-esophageal reflux disease without esophagitis CPT copyright 2020 [employer]. All rights reserved. The codes documented in this report are preliminary and upon analytical engineer review may be revised to meet current compliance requirements. Attending Participation: I was present for the read portions of this procedure and immediately available for all non-read portions of the procedure. Scope In: 1:01:48 PM Scope Out: 1:06:34 PM MD Kevin Abel MD 05/29/2023 1:11:03 PM This report has been signed electronically by Kevin Garcia MD Number of Addenda: 0 Note Initiated On: 05/29/2023 12:58 PM Estimated Blood Loss: Estimated blood loss was minimal. Procedure Note Radiology, Radiologist, MD - 05/29/2023 [facility] Gastrointestinal Endoscopy Patient Name: Gerson Desai Procedure Date: 05/29/2023 12:58 PM Date of : 1965 Admit Type: Outpatient Age: 58 Room: [facility] A Gender: Male Note Status: Finalized Attending MD: Kevin Garcia MD Procedure: Upper GI endoscopy Indications: Esophageal reflux, Follow-up of esophageal reflux Providers: Kevin Garcia MD Patient Profile: This is a 58 year old male. Refer to note in patient chart for documentation of history and physical. Referring Physician: Kevin Garcia MD (Referring MD) [...] and oxygen saturations were monitored continuously. The Endoscope was introduced through the mouth, and advanced to the second part of duodenum. The upper GI endoscopy was accomplished without difficulty. The patient tolerated the procedure well. Moderate Sedation: MAC anesthesia was administered by the anesthesia team. Total Procedure Duration: 0 hours 4 minutes 46 seconds Findings: The Z-line was irregular and was found 45 cm from the incisors. Patchy, scant white plaques were found in the middle third of the esophagus which was brushed. Patchy mildly erythematous mucosa was found in the gastric antrum. Biopsies were taken with a cold forceps for Helicobacter pylori testing. The cardia and gastric fundus were normal on retroflexion. The examined duodenum was normal. The exam was otherwise without abnormality. Impression: - Z-line irregular, 45 cm from the incisors. - Esophageal plaques were found, suspicious for candidiasis. Brushed. - Erythematous mucosa in the antrum. Biopsied. - Normal examined duodenum. - The examination was otherwise normal. Recommendation: - Discharge patient to home (ambulatory). - Resume previous diet today. - Continue present medications. - Await pathology results. - Overall patient has been doing very well with implementation of omeprazole 40 mg daily several months ago which is recommended to continue. Procedure Code(s): --- Professional --- 90302, Esophagogastroduodenoscopy, flexible, transoral; with biopsy, single or multiple Diagnosis Code(s): --- Professional --- K22.89, Other specified disease of esophagus K22.9, Disease of esophagus, unspecified K31.89, Other diseases of stomach and duodenum K21.9, Gastro-esophageal reflux disease without esophagitis CPT copyright 2020 [employer]. All rights reserved. The codes documented in this report are preliminary and upon analytical engineer review may be revised to meet current compliance requirements. Attending Participation: I was present for the read portions of this procedure and immediately available for all non-read portions of the procedure. Scope In: 1:01:48 PM Scope Out: 1:06:34 PM MD Kevin Abel MD 05/29/2023 1:11:03 PM This report has been signed electronically by Kevin Garcia MD Number of Addenda: 0 Note Initiated On: 05/29/2023 12:58 PM Estimated Blood Loss: Estimated blood loss was minimal. Generic External Data Provider [facility] Final Result documented in this encounter Visit Diagnoses Not on filedocumented in this encounter Care Teams Opal Miner Relationship Specialty Start Date End Date Lanie White MD [address] [place] [address] PCP - [facility] 05/01/22 Lanie White MD [address] [place] [address] PCP - General Family Medicine 02/06/23 11/20/23 Sona Adame MD [address] [place] [address] PCP - General Family Medicine 11/21/23 documented as of this encounter
--- OUTSIDE RECORDS SUMMARY | 2025-02-18 12:54 | XMS_ITS | Encounter Summary ---
Author Organization [facility] Address [address] [place] [address] Care Team Providers Care Nuclear Equipment Sales Engineer Name Role Phone Lanie White MD Unavailable [phone] Sona Adame DO Primary Care Provider + Source Comments In the event this information is protected by the Federal Confidentiality of Alcohol and Drug AbusePatient Records regulations: The Federal rules restrict any use of the information to criminally investigate or prosecute any alcohol or drug abuse patient.[facility] Reason for Visit * Reason Comments Refill Request Encounter Details Date Type Department Care Team (Late st Contact Info) Description 11/05/2024 Refill Gastroenterology [address] [place] [address] [place] [address] [place], [place] [id number] Refill Request Social History Tobacco Use Types Packs/Day Years Used Date Smoking Tobacco: Never Smokeless Tobacco: Never Area Deprivation Index Answer Date Cristo rded National Score (1-100), lower number is lower ri sk 87 12/07/2022 State Score (1-10), lower number is lower risk N ot on file 12/07/2022 Data from: https://www.neighborhoodatlas.[facility]/. Last address used for calculation [address] 12/07/2022 Sex and Gender Information Value Date Recorded Sex Assigned at Not on file Legal Sex Male 12:27 PM EDT Gender Identity Not on file Sexual Orientation Not on file documented as of this encounter Miscellaneous Notes * Telephone Encounter - Kika Alcala LPN - 11/05/2024 9:07 AM EST Refill Request Last EGD: 03/25/[address] Garcia Future office visit: none Request for medication is as follows: Requested Prescriptions Pending Prescriptions Disp Refills omeprazole (PRILOSEC) 40 mg capsule [Pharmacy Med Name: Omeprazole 40 MG Oral Capsule Delayed Release] 30 capsule 0 Sig: Take 1 capsule by mouth once daily Prescription(s) as above. Please process accordingly. Kika Alcala LPN documented in this encounter Plan of Treatment Not on file documented as of this encounter Visit Diagnoses Not on filedocumented in this encounter Care Teams Nuclear Equipment Sales Engineer Relationship Specialty Start Date End Date Sona Adame DO [address] [place] [address] PCP - General Family Medicine 03/28/24 Lanie White MD [address] [place] [address] Referring Family Medicine 08/28/22 documented as of this encounter
--- OUTSIDE RECORDS SUMMARY | 2025-02-18 12:54 | XMS_ITS | Encounter Summary ---
Author Organization [facility] Address [address] [place] [address] Care Team Providers Care Zoogler Name Role Phone Lanie White MD Unavailable [phone] Sona Adame DO Primary Care Provider + Source Comments In the event this information is protected by the Federal Confidentiality of Alcohol and Drug AbusePatient Records regulations: The Federal rules restrict any use of the information to criminally investigate or prosecute any alcohol or drug abuse patient.[facility] Reason for Visit * Reason Comments Refill Request Encounter Details Date Type Department Care Team (Late st Contact Info) Description 07/31/2024 Refill Gastroenterology [address] [place], [place] [id number] [place] [address] [place] [address] Refill Request Social History Tobacco Use Types Packs/Day Years Used Date Smoking Tobacco: Never Smokeless Tobacco: Never Area Deprivation Index Answer Date Cristo rded National Score (1-100), lower number is lower ri sk 87 12/07/2022 State Score (1-10), lower number is lower risk N ot on file 12/07/2022 Data from: https://www.neighborhoodatlas.[facility]/. Last address used for calculation [address] 12/07/2022 Sex and Gender Information Value Date Recorded Sex Assigned at Not on file Legal Sex Male 12:27 PM EDT Gender Identity Not on file Sexual Orientation Not on file documented as of this encounter Miscellaneous Notes * Telephone Encounter - Deisy Peck MA - 07/31/2024 6:58 AM EDT Pharmacy calls in requesting the following refill(s): Requested Prescriptions Pending Prescriptions Disp Refills omeprazole (PRILOSEC) 40 mg capsule [Pharmacy Med Name: Omeprazole 40 MG Oral Capsule Delayed Release] 30 capsule 0 Sig: Take 1 capsule by mouth once daily Last OV:12-07-22 Next OV:NA Last Procedure:EGD 03-25-24 Next Procedure:NA Deisy Peck MA documented in this encounter Plan of Treatment Not on file documented as of this encounter Visit Diagnoses Not on filedocumented in this encounter Care Teams Zoogler Relationship Specialty Start Date End Date Sona Adame DO [address] [facility] [address] PCP - General Family Medicine 03/28/24 Lanie White MD [address] [place] [address] Referring Family Medicine 08/28/22 documented as of this encounter
--- OUTSIDE RECORDS SUMMARY | 2025-02-18 12:54 | XMS_ITS | Encounter Summary ---
Author Organization [facility] Address [address] [place] [address] Care Team Providers Care Business Owner/Engineer Name Role Phone Lanie White MD Unavailable [phone] Lanie White MD Primary Care Provider [phone] Sona Adame MD Primary Care Provider [phone] Encounter Details Date Type Department Care Team [...] Office Visit [facility] [address] [phone] Rafael Reyes MD [address] [address] documented as of this encounter Procedures Procedure Name Priority Date/Time Associated Diagnosis Comments [facility] CYTOLOGY NON-SERVICE OBSERVER Routine 05/29/2023 1:05 PM EDT [facility] SURGICAL PATHOLOGY Routine 05/29/2023 1:03 PM EDT COLONOSCOPY 05/29/2023 12:13 PM EDT documented in this encounter Results * [facility] CYTOLOGY NON-SERVICE OBSERVER (05/29/2023 1:05 PM EDT) [facility] CASE REPORT [facility] Comment: Medical Cytology Report Case: [id number] Authorizing Provider: Álvaro Mcfadden MD Collected: 05/29/2023 01:05 PM Ordering Location: Procedures Received: 05/29/2023 01:34 PM Pathologist: Nancy Li MD Specimen: ESOPHAGEAL BRUSH [facility] FINAL DIAGNOSIS [facility] Comment: A - ESOPHAGEAL BRUSH Negative for malignant cells. Fungal organisms morphologically consistent with Laureen species GROSS DESCRIPTION [facility] Comment: A. ESOPHAGEAL BRUSH 30 cc clear colorless CytoLyt with brush and particles. ThinPrep prepared. [facility] FINAL PERFORMING LAB [facility] Comment: Technical component, manager of digital screening performed at [facility], [address] [id number] CLIA# [id number] Diagnostic interpretation performed at [facility], [address] [facility] [address] CLIA# [id number] Conditioning Yard Supervisor: Jp Faria M.D. 05/29/2023 1:05 PM EDT 05/29/2023 4:07 PM EDT Narrative G[facility]IOTA - 05/30/2023 4:41 PM EDT Specimen Type: BRONCHIAL BRUSHINGS SPECIMEN Ordering Facility: [facility] Address: [address] [place] [address] Original Ordering Provider: ÁLVARO MCFADDEN us Generic External Data Provider [facility] kirkpatrick Result [facility] [address] [facility] [address] [place] [address] * [facility] SURGICAL PATHOLOGY (05/29/2023 1:03 PM EDT) [facility] CASE REPORT [facility] Comment: Surgical Pathology Report Case: [id number] Authorizing Provider: Álvaro Mcfadden MD Collected: 05/29/2023 01:03 PM Ordering Location: Procedures Received: 05/29/2023 01:34 PM Pathologist: Álvaro Nettles MD Specimens: A) - ANTRUM (STOMACH) BIOPSY B) - RECTAL POLYP [facility] FINAL DIAGNOSIS [facility] Comment: A. Stomach, antrum, biopsy: - Gastric antral-type mucosa with reactive gastropathy and intestinal metaplasia, negative for dysplasia. B. Rectal polyp, biopsy: - Tubular adenoma. JEL 05/30/2023 DIAGNOSIS COMMENT A. No Helicobacter pylori organisms are identified. [facility] GROSS DESCRIPTION [facility] Comment: A. ANTRUM (STOMACH) BIOPSY Received in formalin is one piece of resendez, soft tissue measuring 0.3 x 0.2 x 0.2 cm. Totally submitted in one cassette. B. RECTAL POLYP Received in formalin is one piece of resendez, soft tissue measuring 0.2 x 0.2 x 0.2 cm. Totally submitted in one cassette. VY May 29, 2023 4:52 PM Gross examination performed at [facility], [address] [place] [address] [facility] FINAL PERFORMING LAB [facility] Comment: Diagnostic interpretation performed at [facility], [address] [place] [address] CLIA# [id number] Conditioning Yard Supervisor: Michael Roberts M.D. 05/29/2023 1:03 PM EDT 05/30/2023 9:56 AM EDT Narrative [facility] - 05/30/2023 12:47 PM EDT Specimen Type: TISSUE SPECIMEN Ordering Facility: [facility] Address: [address] [place] [address] Original Ordering Provider: ÁLVARO MCFADDEN us Generic External Data Provider [facility] F inal Result [facility] [address] [id number] * COLONOSCOPY (05/29/2023 12:13 PM EDT) Anatomical Region Laterality Modality Other 05/29/2023 12:1 3 PM EDT Narrative 05/29/2023 1:25 PM EDT [facility] Gastrointestinal Endoscopy Patient Name: Gerson Desai Procedure Date: 05/29/2023 12:13 PM Date of : 1965 Admit Type: Outpatient Age: 58 Room: [facility] A Gender: Male Note Status: Finalized Attending MD: Álvaro Mcfadden MD Procedure: Colonoscopy Indications: Screening in patient at increased risk: Colorectal cancer in mother before age 60 Providers: Álvaro Mcfadden MD Patient Profile: This is a 58 year old male. Refer to note in patient chart for documentation of history and physical. Last Colonoscopy: 10 years ago. Referring Physician: Álvaro Mcfadden MD (Referring MD) [...] bowel preparation was evaluated using the BBPS ([place] Bowel Preparation Scale) with scores of: Right [...] the patient. Procedure Code(s): --- Professional --- 75792, Colonoscopy, flexible; with biopsy, single or multiple Diagnosis Code(s): --- Professional --- Z12.11, Encounter for screening for malignant neoplasm of colon Z80.0, Family history of malignant neoplasm of digestive organs K64.1, Second degree hemorrhoids D12.8, Benign neoplasm of rectum K57.30, Diverticulosis of large intestine without perforation or abscess without bleeding CPT copyright 2020 [employer]. All rights reserved. The codes documented in this report are preliminary and upon continuous vulcanizing machine operator review may be revised to meet current compliance requirements. Attending Participation: I was present for the read portions of this procedure and immediately available for all non-read portions of the procedure. Scope In: 1:12:22 PM Scope Out: 1:22:34 PM MD Álvaro Abel MD 05/29/2023 1:25:17 PM This report has been signed electronically by Álvaro Mcfadden MD Number of Addenda: 0 Note Initiated On: 05/29/2023 12:13 PM Estimated Blood Loss: Estimated blood loss was minimal. Procedure Note Radiology, Radiologist, - 05/29/2023 [facility] Gastrointestinal Endoscopy Patient Name: Gerson Desai Procedure Date: 05/29/2023 12:13 PM Date of : 1965 Admit Type: Outpatient Age: 58 Room: [facility] A Gender: Male Note Status: Finalized Attending MD: Álvaro Mcfadden MD Procedure: Colonoscopy Indications: Screening in patient at increased risk: Colorectal cancer in mother before age 60 Providers: Álvaro Mcfadden MD Patient Profile: This is a 58 year old male. Refer to note in patient chart for documentation of history and physical. Last Colonoscopy: 10 years ago. Referring Physician: Álvaro Mcfadden MD (Referring MD) [...] bowel preparation was evaluated using the BBPS ([place] Bowel Preparation Scale) with scores of: Right [...] the patient. Procedure Code(s): --- Professional --- 92275, Colonoscopy, flexible; with biopsy, single or multiple Diagnosis Code(s): --- Professional --- Z12.11, Encounter for screening for malignant neoplasm of colon Z80.0, Family history of malignant neoplasm of digestive organs K64.1, Second degree hemorrhoids D12.8, Benign neoplasm of rectum K57.30, Diverticulosis of large intestine without perforation or abscess without bleeding CPT copyright 2020 [employer]. All rights reserved. The codes documented in this report are preliminary and upon continuous vulcanizing machine operator review may be revised to meet current compliance requirements. Attending Participation: I was present for the read portions of this procedure and immediately available for all non-read portions of the procedure. Scope In: 1:12:22 PM Scope Out: 1:22:34 PM MD Álvaro Abel MD 05/29/2023 1:25:17 PM This report has been signed electronically by Álvaro Mcfadden MD Number of Addenda: 0 Note Initiated On: 05/29/2023 12:13 PM Estimated Blood Loss: Estimated blood loss was minimal. us Generic External Data Provider [facility] Final Result documented in this encounter Visit Diagnoses Not on filedocumented in this encounter Care Teams Business Owner/Engineer Relationship Specialty Start Date End Date Lanie White MD [address] [place] [address] PCP - [facility] 05/01/22 Lanie White MD [address] [place] [address] PCP - General Family Medicine 02/06/23 11/20/23 Sona Adame MD [address] [place] [address] PCP - General Family Medicine 11/21/23 documented as of this encounter
--- OUTSIDE RECORDS SUMMARY | 2025-02-18 12:54 | XMS_ITS | Encounter Summary ---
Author Organization [facility] Address [address] [place] [address] Care Team Providers Care Certified Green Building Engineer Name Role Phone Lanie White MD Unavailable [phone] Sona Adame MD Primary Care Provider [phone] Reason for Visit * Reason Comments Med Refill Encounter Details Date Type Department Care Team (Late st Contact Info) Description 02/10/2024 Refill [facility] [address] [place] [address] Lanie White MD [address] [place] [address] Social History Tobacco Use Types Packs/Day Years [...] Telephone Encounter - Ravindra Taylor MA - 02/11/2024 10:50 AM EDT No longer pt here * Telephone Encounter - Ravindra Taylor MA - 02/11/2024 10:49 AM EDT No longer pt here * Telephone Encounter - Ravindra Taylor MA - 02/11/2024 7:58 AM EDT Pt needs apt documented in this encounter Plan of Treatment Upcoming Encounters Date Type Department Care Team (Late st Contact Info) Description 03/04/2025 2:20 PM EDT Office Visit [facility] [address] [place] [address] Rafael Reyes MD [address] [place] [address] documented as of this encounter Visit Diagnoses Not on filedocumented in this encounter Care Teams Certified Green Building Engineer Relationship Specialty Start Date End Date Lanie White MD [address] [place] [address] PCP - [facility] 05/01/22 Sona Adame MD [address] [place] [address] PCP - General Family Medicine 11/21/23 documented as of this encounter
--- OUTSIDE RECORDS SUMMARY | 2025-02-18 12:54 | XMS_ITS | Encounter Summary ---
Author Organization [facility] Address [address] [place] [address] Care Team Providers Care Talend Developer Name Role Phone Lanie White MD Unavailable [phone] Sona Adame MD Primary Care Provider [phone] Encounter Details Date Type Department Care Team (Late Contact Info) Description 11/30/2023 Abstract [facility] [address] [place] [address] DolSalvador bellamy R, DPM FACFAS [address] [place] [address] Social History Tobacco Use Types Packs/Day Years [...] Office Visit [facility] [address] [facility] [address] [place] [address] Rafael Reyes MD [address] [facility] [address] [place] [address] documented as of this encounter Visit Diagnoses Not on filedocumented in this encounter Care Teams Talend Developer Relationship Specialty Start Date End Date Lanie White MD [address] [place] [address] PCP - [facility] 05/01/22 Sona Adame MD [address] [place] [address] PCP - General Family Medicine 11/21/23 documented as of this encounter
--- OUTSIDE RECORDS SUMMARY | 2025-02-18 12:54 | XMS_ITS | Encounter Summary ---
Author Organization [facility] Address [address] [place] [address] Care Team Providers Care Biscuit Machine Operator Name Role Phone Lanie White MD Unavailable [phone] Sona Adame DO Primary Care Provider + Source Comments In the event this information is protected by the Federal Confidentiality of Alcohol and Drug AbusePatient Records regulations: The Federal rules restrict any use of the information to criminally investigate or prosecute any alcohol or drug abuse patient.[facility] Reason for Visit * Reason Comments Refill Request Encounter Details Date Type Department Care Team (Late st Contact Info) Description 08/29/2024 Refill Gastroenterology [address] [place], [place] [id number] [place] [address] [place] [address] Refill Request Social History Tobacco Use Types Packs/Day Years Used Date Smoking Tobacco: Never Smokeless Tobacco: Never Area Deprivation Index Answer Date Cristo rded National Score (1-100), lower number is lower ri sk 87 12/07/2022 State Score (1-10), lower number is lower risk N ot on file 12/07/2022 Data from: https://www.neighborhoodatlas.[facility]/. Last address used for calculation [address] 12/07/2022 Sex and Gender Information Value Date Recorded Sex Assigned at Not on file Legal Sex Male 12:27 PM EDT Gender Identity Not on file Sexual Orientation Not on file documented as of this encounter Miscellaneous Notes * Telephone Encounter - Sonam Celis MA - 08/29/2024 8:24 AM EST Patient has been identified by name and date of : Yes Last office visit in this department: 12/07/2022 03-25-24 egd Patient phones requesting refills as follows: Requested [...] on filedocumented in this encounter Care Teams Biscuit Machine Operator Relationship Specialty Start Date End Date Sona Adame DO [address] [place] [address] PCP - General Family Medicine 03/28/24 Lanie White MD [address] [place] [address] Referring Family Medicine 08/28/22 documented as of this encounter
--- OUTSIDE RECORDS SUMMARY | 2025-02-18 12:54 | XMS_ITS | Encounter Summary ---
Author Organization [facility] Address [address] [place] [address] Care Team Providers Care Acquisitions Analyst Name Role Phone David Griffith MD Primary Care Provider [phone] Lanie White MD Unavailable [phone] Sona Adame DO Primary Care Provider + Source Comments In the event this information is protected by the Federal Confidentiality of Alcohol and Drug AbusePatient Records regulations: The Federal rules restrict any use of the information to criminally investigate or prosecute any alcohol or drug abuse patient.[facility] Encounter Details Date Type Department Care Team (Late st Contact Info) Description 03/27/2024 Get Medical Advice Gastroenterology [address] [place] [address] [place] [address] [place], [place] [id number] I just want you to know medical dr change Social History Tobacco Use Types Packs/Day Years Used Date Smoking Tobacco: Never Smokeless Tobacco: Never Area Deprivation Index Answer Date Cristo rded National Score (1-100), lower number is lower ri sk 87 12/07/2022 State Score (1-10), lower number is lower risk N ot on file 12/07/2022 Data from: https://www.neighborhoodatlas.medicine.[facility].edu/. Last address used for calculation [address] 12/07/2022 Sex and Gender Information Value Date Recorded Sex Assigned at Not on file Legal Sex Male 12:27 PM EDT Gender Identity Not on file Sexual Orientation Not on file documented as of this encounter Miscellaneous Notes * Telephone Encounter - Denise Marie RN - 03/28/2024 12:06 PM EDT Schedules, please update pt's PCP with info below. Thank you, Denise Marie RN documented in this encounter Plan of Treatment Not on file documented as of this encounter Visit Diagnoses Not on filedocumented in this encounter Care Teams Acquisitions Analyst Relationship Specialty Start Date End Date David Griffith MD PCP - General Family Medicine 01/15/17 03/27/24 Sona Adame DO [address] [place] [address] PCP - General Family Medicine 03/28/24 Lanie White MD [address] [place] [address] Referring Family Medicine 08/28/22 documented as of this encounter
[2025-02-18 13:03] LABS: Hemoglobin 15.2 g/dL (14.0-18.0)
[2025-02-18] MEDS: ALBUTEROL SULFATE 2.5 MG/3 ML VIAL NEB IH (14:31)
--- NOTE | 2025-02-18 14:53 | RT_ITS ---
[facility] Test Date: 2025-02-18 Pat Name: RANJITH SANCHEZ Department: Room: - Gender: Male Licensed Chemical Spray Technician: Maria Esther Toledo RRT : 1965 Requested By: Brent Pollack Order Number: [id number] Reading MD: Brent Pollack Interpretive Statements Pulmonary function testing was completed according to ATS criteria. Findings were considered accurate and reproducible. Both pre- and post-bronchodilator values utilized for spirometry. Spirometry (based on pre-bronchodilator values): -FEV1/FVC: Low normal @ 70% -FEV1: Normal @ 95% -FVC: Normal @ 103% -RSH56-14%: Reduced @ 71% -There is a partial bronchodilator response in FEV1 which meets >200mL increase but <12% change. Lung volumes by plethysmography: -RV: Increased @ 152% -TLC: Normal @ 118% Diffusion capacity: -DLCO: Normal @ 93% when corrected for Hb 15.2g/dL Impressions: -Though technically normal, spirometry is right on the cutoff for a mild obstructive pattern with a partial bronchodilator response. An elevated RV suggests air trapping. The diffusion capacity is normal. Overall study is compatible with asthma. Clinical correlation required. Electronically Signed On 02-18-2025 18:47:47 EDT by Brent Pollack
== END 2025-02-18 12:46 | disposition home or self-care (01) ==
LOC: CARD 12:50
PROVIDERS: PCP Family Medicine; Visit Provider Internal Medicine
DX: J45.40 Moderate persistent asthma, uncomplicated (principal)
CPT/HCPCS: 36415; 85018; 94060; 94726; 94729